=== PATIENT | male | born 1990 | race Caucasian/White ===

== ENCOUNTER 2021-05-24 11:30 | Emergency (ER) | payer OTHER, SELFPAY ==
--- NOTE | ~2021-05-24 | XR_ITS ---
EXAMINATION: XR chest 2V 05/24/2021 12:32 INDICATION: Cough and congestion PROCEDURE: 2 view chest COMPARISON: 06/19/2013 FINDINGS: The lungs are clear. The cardiomediastinal silhouette is within normal limits. There are no pleural effusions. There is no pneumothorax suspected. IMPRESSION: 1: NO ACUTE CARDIOPULMONARY DISEASE. Reviewed, dictated and finalized at location A.
[2021-05-24 11:42] VITALS: BP 188/121; PULSE 119; RESP 16; TEMP 37.2; O2SAT 98
--- NOTE | 2021-05-24 12:19 | ED.URI ---
HPI - URI/Sore Throat General Chief Complaint: Upper Respiratory Infection Stated Complaint: Light headed,Shortness of breath,cough Time Seen by Provider: 05/24/21 12:07 Source: patient and RN notes reviewed Mode of arrival: ambulatory Limitations: no limitations History of Present Illness HPI Narrative: Patient presents today complaining of intermittent cough, congestion, rhinorrhea. States cough began at the end of January. Reports he occasionally coughs up clear sputum and the cough is worse in the mornings. Reports he has been experiencing intermittent shortness of breath for the last month and a lung pain for the past week. Associated upper respiratory symptoms have also been present intermittently since January. Denies any history of asthma or COPD. He has not tried any medication for symptoms prior to arrival. He stopped vaping in October. Reports other members of his family also have similar symptoms that started around the same time. MD elicited complaint: cough, rhinorrhea and nasal congestion Related Data Allergies Allergy/AdvReac Type Severity Reaction Status Date / Time No Known Allergies Allergy Unverified 07/03/14 15:58 Review of Systems Review of Systems: CONSTITUTIONAL: Denies body aches, fever, chills, or sweats. EYES: Denies visual changes, redness, or discharge. ENT: Denies sore throat, or otalgia.+ Rhinorrhea, congestion CARDIOVASCULAR: Denies chest pain, palpitations, or edema. RESPIRATORY: + Cough, shortness of breath, lung pain . GASTROINTESTINAL: Denies abdominal pain, nausea, vomiting, or diarrhea. GENITOURINARY: Denies dysuria or hematuria. SKIN: Denies rash, itching, or wounds. MUSCULOSKELETAL: Denies back pain, joint pain, or myalgia. NEUROLOGIC: Denies headache, numbness, tingling, or weakness. PSYCH: Denies depression or anxiety. [facility] Past Medical History Medical History (Updated 05/24/21 @ 13:01 by Hayley Moore, [facility], ) GERD (gastroesophageal reflux disease) Comments At time of signature, I have reviewed and agree with nursing past medical, surgical, social and family history unless otherwise noted. Please see nursing chart for further information. There is no relevant family history pertinent to the presenting complaint Exam Narrative: GENERAL: Well-appearing, well-nourished, and in no acute distress. HEAD: Normocephalic, atraumatic. EYES: EOMI. No redness or drainage. Conjunctivae normal. ENT: Mucous membranes pink and moist. Nares clear. No rhinorrhea. TMs normal bilaterally. Throat normal. Uvula midline. NECK: Normal AROM. Supple. No lymphadenopathy. CHEST: No respiratory distress. Clear to auscultation. HEART: Regular rhythm. +Tachycardia. No murmur appreciated. Normal peripheral pulses. EXTREMITIES: Normal range of motion. No edema. SKIN: Warm, dry, no rash. Capillary refill normal. Normal skin turgor. NEURO: No focal deficits. Alert and oriented x3. Gait steady. PSYCH: Normal affect. No signs of depression or anxiety. Course Course Level of Care: Express Care Visit Vital Signs Vital signs: Vital Signs Temperature 99.0 F 05/24/21 11:42 Pulse Rate 119 H 05/24/21 11:42 Respiratory Rate 16 05/24/21 11:42 Blood Pressure 188/121 H 05/24/21 11:42 Pulse Oximetry 98 05/24/21 11:42 Temperature 99.0 F 05/24/21 11:42 Pulse Rate 119 H 05/24/21 11:42 Respiratory Rate 16 05/24/21 11:42 Blood Pressure 188/121 H 05/24/21 11:42 Pulse Oximetry 98 05/24/21 11:42 Reviewed. Pt has been instructed to follow up with his PCP regarding his elevated blood pressure today. States he has never been told he has high blood pressure. He does not currently have a PCP. MDM - URI/Sore Throat Differential Diagnosis Differential diagnosis: Likely upper respiratory infection, sinusitis, viral infection, bronchitis and other (Pneumonia) Imaging Data Radiologist's impression: ITS Impressions Chest X-Ray 05/24/21 12:39 IMPRESSION: 1: NO
== END 2021-05-24 12:57 | disposition home or self-care (01) ==
PROVIDERS: Emergency Provider Nurse Practitioner
DX: J40 Bronchitis, not specified as acute or chronic (principal); K21.9 Gastro-esophageal reflux disease without esophagitis
CPT/HCPCS: 71046; 99213; G0463

== ENCOUNTER 2022-07-03 13:17 | Emergency (ER) | payer BC, SELFPAY ==
--- NOTE | ~2022-07-03 | XR_ITS ---
EXAM: XR foot LT min 3V DATE: 07/03/2022 14:12 HISTORY: PAIN PLANTAR ASPECT OF DISTAL LT 5TH METATARSAL . COMPARISON: None available. FINDINGS: Normal mineralization. No fracture or dislocation. No lytic or blastic lesion. Joint space s are maintained. No erosion or periosteal change. Soft tissues within normal limits. Linear radiopaq ue foreign body along the medial and plantar soft tissues at the level of the fifth proximal phalange . IMPRESSION: Linear radiopaque foreign body in the plantar soft tissues at the level of the left fifth proximal phalange. Reviewed, dictated and finalized at location K. IMPRESSION: Linear radiopaque foreign body in the plantar soft tissues at the l evel of the left fifth proximal phalange.
--- NOTE | ~2022-07-03 | XR_ITS ---
EXAMINATION: XR chest 2V Exam Date/Time: 07/03/2022 14:00 CDT HISTORY: SOB ON AND OFF X 1 YR Comparison: 05/24/2021. RESULT: Lines, tubes, and devices: None. Lungs and pleura: Clear. Cardiomediastinal silhouette: Stable. Small hiatal hernia Other: No acute osseous or upper abdominal finding. IMPRESSION: No acute cardiopulmonary process. Reviewed, dictated and finalized at location K.
[2022-07-03 13:24] VITALS: BP 121/92; PULSE 104; RESP 16; TEMP 36.3; O2SAT 100
--- NOTE | 2022-07-03 13:39 | ED.LOWEXIN ---
HPI - Extremity Injury (Lower) General Chief Complaint: Extremity Injury, Lower Stated Complaint: SOB/Left Foot Pain Time Seen by Provider: 07/03/22 13:39 Source: patient Mode of arrival: ambulatory Limitations: no limitations History of Present Illness HPI Narrative: 32-year-old male presents with complaint of pain to left foot for 2 months. States he stepped on a nail at work and was never seen. He did not have insurance at the time. He states often has soreness to area where he stepped on nail after working long shifts. Six worse with bearing weight. Patient also reports short of breath when climbing ladders since January. States he had COVID in January. Denies chest pain, chest tightness, wheezing. Not short of breath at this time. Does not have a primary care physician. States he recently just got health insurance. Denies frequent coughing. Related Data Home Medications Medication Instructions Recorded Confirmed No Home Medications 07/03/22 07/03/22 Allergies Allergy/AdvReac Type Severity Reaction Status Date / Time No Known Allergies Allergy Verified 07/03/22 13:28 Review of Systems Review of Systems: CONSTITUTIONAL: Denies fever, chills, or sweats. EYES: Denies visual changes, redness, or discharge. ENT: Denies rhinorrhea, congestion, sore throat, or otalgia. CARDIOVASCULAR: Denies chest pain, palpitations, or edema. RESPIRATORY: Denies cough . Reports dyspnea with exertion. GASTROINTESTINAL: Denies abdominal pain, nausea, vomiting, or diarrhea. GENITOURINARY: Denies dysuria or hematuria. SKIN: Denies rash or itching. MUSCULOSKELETAL: Denies back pain, joint pain, or myalgia. reports left foot pain, plantar aspect. NEUROLOGIC: Denies headache, numbness, or weakness. PSYCHIATRIC: Denies anxiety or depression. All other systems reviewed are negative, except as documented in HPI. [facility]LY [facility] Past Medical History Medical History (Updated 07/03/22 @ 14:26 by Nyla Berger NP) GERD (gastroesophageal reflux disease) Comments At time of signature, agree with nursing past medical, surgical, social and family history. There is no relevant family history pertinent to the presenting complaint. Exam Narrative: GENERAL: This is a well-nourished, well-developed patient, in no apparent distress. HEAD: normocephalic, atraumatic. EYES: PERRL. Sclera clear/white. Vision is grossly intact. EARS: External ears normal NOSE: External nose normal NECK: Neck supple, non-tender without lymphadenopathy, masses or thyromegaly. CARDIOVASCULAR: Regular rate and rhythm without murmurs, gallops, or rubs. RESPIRATORY: Clear to auscultation. Breath sounds equal bilaterally. No wheezes, rales, or rhonchi. SKIN: warm, Dry, intact with no suspicious lesions or rash, good texture and turgor. No abnormality noted to plantar aspect of left foot. No tenderness on palpation. NEURO: awake, alert, and oriented to person, place and time. There were no obvious focal neurologic abnormalities. EXTREMITIES: No joint tenderness, effusion, or edema noted. Course Course Level of Care: Express Care Visit Vital Signs Vital signs: Vital Signs Temperature 36.3 C L 07/03/22 13:24 Pulse Rate 104 H 07/03/22 13:24 Respiratory Rate 16 07/03/22 13:24 Blood Pressure 121/92 H 07/03/22 13:24 Pulse Oximetry 100 07/03/22 13:24 Oxygen Delivery Room Air 07/03/22 13:24 Temperature 36.3 C L 07/03/22 13:24 Pulse Rate 104 H 07/03/22 13:24 Respiratory Rate 16 07/03/22 13:24 Blood Pressure 121/92 H 07/03/22 13:24 Pulse Oximetry 100 07/03/22 13:24 Oxygen Delivery Room Air 07/03/22 13:24 Reviewed MDM - Extremity Injury (Lower) MDM Narrative Medical decision making narrative: normal chest x-ray. Lung sounds clear to auscultation. No shortness of breath at this time. Patient reports shortness of breath only when climbing ladders. Will refer to primary care physician for further eval
[2022-07-03] MEDS: TETANUS,DIPHTHERIA,AC PERTUSSIS ADULT (0.5 ML) BOOSTRIX IM (14:17)
== END 2022-07-03 14:31 | disposition home or self-care (01) ==
PROVIDERS: Emergency Provider Nurse Practitioner Family
DX: R06.09 Other forms of dyspnea (principal); S90.852A Superficial foreign body, left foot, initial encounter; W45.0XXA Nail entering through skin, initial encounter; Z23 Encounter for immunization; K21.9 Gastro-esophageal reflux disease without esophagitis
CPT/HCPCS: 71046; 73630; 90471; 90715; 99214; G0463

== ENCOUNTER 2022-10-10 09:58 | Inpatient (IN) | payer BC, SELFPAY ==
[2022-10-10] VITALS (35 sets, daily range): BP systolic 153–195; BP diastolic 104–131; PULSE 96–130; RESP 12–26; TEMP 36.3–37; O2SAT 98–100; BMI 31.8
--- NOTE | ~2022-10-10 | XR_ITS ---
EXAMINATION: XR chest 1V portable DATE: 10/10/2022 11:55 INDICATION: Blood in stool. Left chest pain. TECHNIQUE: A single frontal view of the chest was obtained. COMPARISON: Chest 2 views 07/03/2022, CT abdomen and pelvis 06/19/2013 FINDINGS: There is no pneumonia, pleural effusion, or pneumothorax. The heart size is normal. IMPRESSION: 1. No acute cardiopulmonary disease. Reviewed, dictated and finalized at location A.
--- NOTE | 2022-10-10 10:23 | ECG_ITS ---
Measurements Intervals [place] Rate: 116 P: 65 CO: 135 QRS: 15 QRSD: 97 T: 13 QT: 320 QTc: 445 Interpretive Statements SINUS TACHYCARDIA INFERIOR MYOCARDIAL INFARCTION [40+ ms Q WAVE AND/OR ST/T ABNORMALITY IN II/aVF], OF INDETERMINATE AGE ABNORMAL ECG INTERPRETATION BASED ON A DEFAULT AGE OF 40 YEARS NO PREVIOUS ECG AVAILABLE FOR COMPARISON Electronically Signed On 10-10-2022 13:06:30 CDT by Jasbir Esquivel M.D.
--- NOTE | 2022-10-10 10:23 | ED.CHESTPAIN ---
HPI - Chest Pain General Chief Complaint: Chest Pain <KIP Shaver Last Filed: 10/10/22 19:25> Stated Complaint: hemorrhoid pop <KIP Shaver Last Filed: 10/10/22 19:25> Time Seen by Provider: 10/10/22 10:08 <KIP Shaver Last Filed: 10/10/22 19:25> Source: patient <KIP Shaver Last Filed: 10/10/22 19:25> Mode of arrival: ambulatory <KIP Shaver Last Filed: 10/10/22 19:25> Limitations: no limitations <KIP Shaver Last Filed: 10/10/22 19:25> History of Present Illness HPI narrative: Patient is a 32-year-old male who presents to the ED with multiple complaints. Patient is an alcoholic and typically drinks 8+ vodka drinks a day. His last drink was around 8 PM last night. He reports feeling very tremulous, shaky, jittery, with racing heart palpitations. He has had withdrawal symptoms before which feels similar. Denies history of withdrawal seizures. He also reports having bright red rectal bleeding with dark black stools over the last 2 days. He does note history of hemorrhoids, but denies feeling painful bulge. He has a remote history of ulcers, but denies any upper abdominal pain. He has had intermittent lower abdominal pain, denies any currently. This morning, he had 2 episodes of nausea with vomiting and still feels nauseous currently. He also reported having SOB and multiple episodes of midsternal and left-sided chest pain this morning. He states the pain occurs in brief sharp pokes throughout his left-sided chest, lasting for 5 minutes or so before resolving. Patient denies previous history of coronary disease. Denies history of blood clots. <KIP Shaver Last Filed: 10/10/22 19:25> Related Data Home Medications: Home Medications Medication Instructions Recorded Confirmed No Home Medications 07/03/22 10/10/22 <KIP Shaver Last Filed: 10/10/22 19:25> Allergies/Adverse Reactions: Allergies Allergy/AdvReac Type Severity Reaction Status Date / Time No Known Allergies Allergy Verified 10/10/22 10:16 <Emily Coulter PA-C - Last Filed: 10/10/22 19:25> Review of Systems Review of Systems: CONSTITUTIONAL: Denies fever, chills, or sweats. CARDIOVASCULAR: See HPI. RESPIRATORY: See HPI. GASTROINTESTINAL: See HPI. GENITOURINARY: Denies dysuria or hematuria. SKIN: Denies rash or itching. MUSCULOSKELETAL: Denies back pain, joint pain, or myalgia. NEUROLOGIC: See HPI. <Emily Coulter PA-C - Last Filed: 10/10/22 19:25> All systems reviewed & are unremarkable except as noted in HPI and below <Emily Coulter PA-C - Last Filed: 10/10/22 19:25> PMFSH Past Medical History Medical History: Medical History Alcoholism GERD (gastroesophageal reflux disease) Marijuana use, continuous Daily Obesity (BMI 30.0-34.9) Peptic ulcer disease <Emily Coulter PA-C - Last Filed: 10/10/22 19:25> Surgical History Surgical History: Surgical History History of adenoidectomy <Emily Coulter PA-C - Last Filed: 10/10/22 19:25> Social History Social History: Social History Smoking status: Former smoker Alcohol intake: current Drinks per week: 84 Alcohol use details: Alcoholism Substance use: current Substance use type: marijuana Last use: 10/10/22 Lack of Transportation: No Lack of Food: Never True Current Housing: I Have Housing Concerned About Future Housing: No Difficulty Paying Gas/Electric Bills: No Difficulty Paying for Meds: No Currently Unemployed: No Education: Trade/Vocational Certificate Difficulty w/ Childcare or Family Care: No Spiritual care concerns: No <Emily
--- NOTE | 2022-10-10 10:57 | PC.NURSE ---
Patient report given to DEYA Cristobal. All questions answered and care of patient transferred.
[2022-10-10] MEDS: LORazepam INJ (*CRX) 2 MG/ML VIAL 1 MG IV PUSH (11:02)
[2022-10-10] MEDS: ONDANSETRON INJ 4 MG/2 ML VIAL IV PUSH (11:02)
[2022-10-10 11:06] LABS: Ethanol < 10 mg/dL (<10)
[2022-10-10] MEDS: PHENobarbitaL sodium (*CRX) 130 MG/ML VIAL IV PUSH (11:08)
[2022-10-10 11:13] LABS: Albumin Level 4.8 g/dL (3.5-5.1); Alkaline Phosphatase 126 U/L (38-126); Anion Gap 17 mmol/L (8-16); Aspartate Amino Transferase 58 U/L (17-59); Bilirubin,Total 1.2 mg/dL (0.2-1.3); Blood Urea Nitrogen 8 mg/dL (9-20); Calcium 9.9 mg/dL (8.4-10.2); Carbon Dioxide 21 mmol/L (22-30); Chloride 93 mmol/L (98-107); Estimated CRCL calculation 134 ml/min; Estimated Glomerular Filt Rate > 60; Glucose 181 mg/dL (65-110); Lipase 84 U/L (23-300); Magnesium 1.3 mg/dL (1.6-2.3); Phosphorus 2.5 mg/dL (2.5-4.5); Potassium 3.8 mmol/L (3.4-5.0); Sodium 131 mmol/L (137-145)
[2022-10-10 11:16] LABS: Basophils Absolute Auto 0.1 K/mm3 (0.0-0.1); Basophils Percent Auto 0.4 % (0.2-1.2); Eosinophils Percent Auto 0.3 % (0-4.4); Hematocrit 47.8 % (42.0-52.0); Hemoglobin 17.3 g/dL (14.0-18.0); Immature Granulocyte Absolute 0.04 K/mm3 (0.00-0.031); Immature Granulocyte Percent A 0.3 % (0-0.5); Lymphocytes Absolute Auto 2.18 K/mm3 (0.9-3.2); Lymphocytes Percent Auto 18.8 % (18.3-44.2); Mean Corpuscular HGB Conc 36.2 g/dl (32-36); Mean Corpuscular Hemoglobin 32.6 pg (26-34); Mean Platelet Volume 9.8 fl (7.4-10.4); Monocytes Percent Auto 8.3 % (2.6-8.5); Neutrophils Absolute Auto 8.3 K/mm3 (1.3-6.7); Neutrophils Percent Auto 71.9 % (45.5-73.1); Platelet Count Result 248 k/mm3 (150-375); Red Blood Count 5.31 M/mm3 (4.6-6.20); Red Cell Distribution Width 12.9 % (11.5-14.5); White Blood Count 11.6 K/mm3 (4.5-10.0)
[2022-10-10 11:17] LABS: Alanine Aminotransferase 48 U/L (6-50)
[2022-10-10] MEDS: THIAMINE HCL INJ 100 MG, FOLIC ACID INJ 1 MG, MAGNESIUM SULFATE INJ 1 GM in LACTATED RI... IV CONT (11:18)
[2022-10-10 11:19] LABS: Troponin I < 0.012 ng/mL (0.000-0.034)
[2022-10-10] MEDS: SODIUM CHLORIDE 0.9% IV 1,000 ML 999 ML IV CONT ×3 (11:56→15:06)
[2022-10-10] MEDS: MAGNESIUM SULF 2 GM/WATER 50ML 2 GM/50 ML BAG IVPB (11:56)
[2022-10-10 12:05] LABS: Appearance Urine Clear (Clear); Bacteria Urine None Seen /hpf; Bilirubin Urine Negative (Negative); Blood Urine Negative (Negative); Color Urine Yellow (Yellow); Glucose Urine UA 1+ mg/dL (Negative); Ketones Urine Trace mg/dL (Negative); Leukocyte Esterase Ur Negative LEU/UL (Negative); Nitrate Urine Negative (Negative); Non Pathogenic Casts 0-2; Protein Urine 2+ mg/dL (Negative); RBC Urine 0-2 /hpf (0-2); Specific Grav Ur 1.018 (1.001-1.035); Squamous Epithelial Cell Urine None seen /hpf (Few); Urobilinogen Urine 0.2 mg/dL (<2.0); WBC Urine 0-5 /hpf
[2022-10-10 12:05] LABS: INR 0.9; Prothrombin Time 12.7 Seconds (11.1-14.7)
[2022-10-10 12:06] LABS: Partial Thromboplastin Time 24.6 SECONDS (22.3-36.8)
[2022-10-10 12:15] LABS: Amphetamine Screen Urine Negative (Negative); Barbiturate Screen Urine Negative (Negative); Benzodiazepines Screen Urine Negative (Negative); Cannabinoid Screen Urine Positive (Negative); Cocaine Screen Urine Negative (Negative); Methadone Screen Urine Negative (Negative); Opiate Screen Urine Negative (Negative); Phencyclidine Screen Urine Negative (Negative)
[2022-10-10 12:29] LABS: Add Urine Microscopic? YES
[2022-10-10] MEDS: PANTOPRAZOLE SODIUM IV 40 MG VIAL IV PUSH ×2 (13:24→20:01)
[2022-10-10] MEDS: LORazepam INJ (*CRX) 2 MG/ML VIAL IV PUSH (13:30)
[2022-10-10] MEDS: ACETAMINOPHEN 500 MG TABLET 1000 MG PO (13:30)
[2022-10-10 13:47] LABS: Lactic Acid Reflex 3.7 mmol/L (0.7-2.0)
[2022-10-10 14:00] LABS: Troponin I < 0.012 ng/mL (0.000-0.034)
[2022-10-10 16:32] LABS: Reflex Lactic Acid Yes or No Add Lactic
[2022-10-10 17:02] LABS: Lactic Acid 2.4 mmol/L (0.7-2.0)
--- NOTE | 2022-10-10 17:05 | PM.IMHP ---
H&P: HPI History of Present Illness Date/Time: 10/10/22 17:05 Chief Complaint: Bloody stools, chest pain Narrative: 32-year-old male with a past medical history of alcohol related ulcers, alcoholism and obesity who presented to the ER with rectal bleeding and chest pain. The patient reports that 2 days ago he noticed some bright red blood in his stools with a bowel movement. His bloody stools were accompanied by really dark brown stools almost black in color. He has been having reflux symptoms multiple times a day for quite some time. He thought his bleeding was due to hemorrhoids as he has had hemorrhoidal bleeding in the past. However each time he has had a bowel movement since then he has had and about the same amount of blood in his stools. Then today he also developed some nausea vomiting as well as some chest pain. His chest pain is atypical in nature and he describes it as sharp almost needle-like sensations on various areas over his left anterior and lateral chest. The pain comes and goes after couple of minutes only to moved to another spot. He denies feeling as if his heart is racing but he was noted to be markedly tachycardic in the ER. He has been having some nausea vomiting that began this morning although he denies any bloody emesis or coffee-ground emesis. He only vomited a couple of times in a consisted of the protein shake that he had been drinking. He has struggled with alcoholism for about 10 years. He reports that he was in recovery for about 3 months until July. In July he had a relapse in his since that time been drinking 8-12 shots a day. His last drink was around 20:00 on the . He reports that he recently has been trying to cut back on his alcohol use. He does also smoke marijuana multiple times a day. He is a former smoker as well. He denies any hematuria but his urine has been darker in appearance. 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 He denies any cough, congestion, orthopnea, paroxysmal nocturnal dyspnea or lower extremity swelling. ER to patient's CIWA score was 36. He received a dose of phenytoin. He had received 1 L of fluids in the ER I requested he received another 2 L. they did start a banana bag in the ER. Patient was noted to be hypomagnesemic in the ER and received 2 g of magnesium. He denies taking any blood thinners and does not have any home medications. He also reports that is ear canals have been itching recently. He does use Q-tips on a daily basis. At the time of my physical exam the patient had a perforated left eardrum. Review of Systems Review of Systems: 12 systems were reviewed with pertinent positives and negatives per HPI. Except as documented in the HPI, all other systems were reviewed and are negative. [facility] Past Medical History Medical History (Updated 10/10/22 @ 17:32 by Yvonne Eng DO) Alcoholism GERD (gastroesophageal reflux disease) Marijuana use, continuous Daily Obesity (BMI 30.0-34.9) Peptic ulcer disease Surgical History Surgical History (Updated 10/10/22 @ 17:21 by Yvonne Eng DO) History of adenoidectomy Social History Social History (Updated 10/10/22 @ 11:52 by Emily Coulter PA-C) Alcohol intake: current Alcohol use details: Alcoholism Meds Home Medications and Allergies Home Medications Medication Instructions Recorded Confirmed Type No Home Medications 07/03/22 07/03/22 History Allergies Allergy/AdvReac Type Severity Reaction Status Date / Time No Known Allergies Allergy Verified 10/10/22 10:16 Vital Signs Vital Signs - 24 hr 10/10/22 10:06 10/10/22 10:48 10/10/22 10:48 Temperature 97.4 F L Pulse Rate 128 H 104 H Respiratory Rate 17 Blood Pressure 187/131 H Pulse Oximetry 98 Oxygen Delivery Room Air Room Air 10/10/22 10:04 10/10/22 10:10 10/10/22 10:15 Temperature Pulse Rate 130 H 126 H Respiratory R
[2022-10-10 17:15] LABS: Troponin I < 0.012 ng/mL (0.000-0.034)
--- NOTE | 2022-10-10 17:23 | ADMGEN ---
This patient, Almas Sheppard, was admitted to IMU Room 207-01. Patient/family oriented to hospital policies and general routines including ID bracelet, bed and alarms, visiting hours, pain management, procedures, bathroom and other care routines, personal items, smoking policy, room service/diet, and visiting hours. Information on how to activate the Rapid Response Team has been discussed. Patient/Family are encouraged to report perceived risks to care and to ask questions if they do not understand what they are told or what they should do.
[2022-10-10 18:12] LABS: Hematocrit 49.3 % (42.0-52.0); Hemoglobin 17.2 g/dL (14.0-18.0)
[2022-10-10] MEDS: chlordiazePOXIDE (*CRX) 25 MG CAPSULE 50 MG PO (18:14)
[2022-10-10] MEDS: SODIUM CHLORIDE 0.9% IV 1,000 ML 150 ML IV CONT (20:01)
[2022-10-10 21:14] LABS: Hemoglobin A1C 7.2 % (<5.7)
[2022-10-11] VITALS (26 sets, daily range): BP systolic 120–184; BP diastolic 79–129; PULSE 74–123; RESP 14–20; TEMP 36.3–36.8; O2SAT 97–100
[2022-10-11] MEDS: chlordiazePOXIDE (*CRX) 25 MG CAPSULE 50 MG PO ×5 (01:13→23:21)
[2022-10-11 01:22] LABS: Hematocrit 40.6 % (42.0-52.0); Hemoglobin 14.1 g/dL (14.0-18.0)
[2022-10-11 01:24] LABS: Glucose Point of Care 158 mg/dl (65-105)
[2022-10-11] MEDS: METOPROLOL TARTRATE INJ 5 MG/5 ML VIAL IV PUSH (01:24)
[2022-10-11] MEDS: SODIUM CHLORIDE 0.9% IV 1,000 ML 150 ML IV CONT ×3 (03:04→19:44)
[2022-10-11] MEDS: LORazepam INJ (*CRX) 2 MG/ML VIAL IV PUSH ×3 (03:04→21:31)
[2022-10-11] MEDS: hydrALAZINE HCL 20 MG/ML VIAL 10 MG IV PUSH (04:49)
[2022-10-11] MEDS: HYDROmorphone HCL INJ (*CRX) 1 MG/ML SYR 0.5 MG IV PUSH (04:50)
[2022-10-11 06:44] LABS: Glucose Point of Care 154 mg/dl (65-105)
--- NOTE | 2022-10-11 08:58 | PM.IMPN ---
Progress Note: A&P Assessment and Plan (1) Alcohol withdrawal: Qualifiers: Complication of substance-induced condition: with unspecified complication Qualified Code(s): F10.939 - Alcohol use, unspecified with withdrawal, unspecified Code(s): F10.939 - Alcohol use, unspecified with withdrawal, unspecified Status: Acute Assessment and Plan: Supportive care, chlordiazepoxide scheduled, monitor CIWA Thiamine and folate administration, seizure precautions Mild transaminitis, monitor (2) Hypomagnesemia: Code(s): E83.42 - Hypomagnesemia Status: Acute (3) Rectal bleeding: Code(s): K62.5 - Hemorrhage of anus and rectum Status: Acute Assessment and Plan: Consult GI, PPI b.i.d. (4) Atypical chest pain: Code(s): R07.89 - Other chest pain Status: Acute Assessment and Plan: Likely secondary to gastritis, monitor (5) Peptic ulcer disease: Code(s): K27.9 - Peptic ulcer, site unspecified, unspecified as acute or chronic, without hemorrhage or perforation Status: Acute Assessment and Plan: See above (6) Hyponatremia: Code(s): E87.1 - Hypo-osmolality and hyponatremia Status: Acute Assessment and Plan: Monitor with gentle IV fluid resuscitation, likely somewhat chronic due to alcoholism (7) Hyperglycemia: Code(s): R73.9 - Hyperglycemia, unspecified Status: Acute Assessment and Plan: Check A1c, Accu-Cheks, sliding scale insulin Blood glucose reviewed 10/11 (8) Hypertension: Qualifiers: Hypertension type: unspecified Qualified Code(s): I10 - Essential (primary) hypertension Code(s): I10 - Essential (primary) hypertension Status: Acute Assessment and Plan: Blood pressure reviewed 10/11 (9) Obesity (BMI 30.0-34.9): Code(s): E66.9 - Obesity, unspecified Status: Acute (10) Perforated left tympanic membrane on examination: Code(s): H72.92 - Unspecified perforation of tympanic membrane, left ear Status: Acute Assessment and Plan: Supportive care, avoid Q-tips, monitor outpatient Plan Suspect sleep apnea, recommend sleep study at discharge The patient has alcoholism without acute alcohol withdrawal. Patient's CIWA score was up to 36 in the ER but responded well to phenobarbital. The patient has been admitted to the IMU. Will continue check CIWA scores q.4 hours. Will give Ativan in staggered doses based on CIWA scores. Will place patient on scheduled Librium 50 mg q.6 hours. Will continue p.r.n. medications for nausea and vomiting. Patient has been placed on seizure precautions although his does not have a history of alcohol withdrawal seizures. Will continue patient on thiamine supplementation daily. Will continue IV fluid hydration normal saline at 150 mL an hour as the patient does have evidence of dehydration and alcoholic ketosis. Patient does have significant sinus tachycardia. Again likely due to dehydration. However patient is also quite anxious and this may be playing a component in his tachycardia. Will continue to monitor on telemetry. His EKG was reviewed and he has normal QT interval. Patient does have a Q-waves and AVF. However his chest pain is atypical in nature. Will continue to trend troponins. Patient is being observed in the IMU. Patient does have rectal bleeding and history of peptic ulcer disease. He is having frequent GERD symptoms. Will place patient on Protonix 40 mg IV q.12 hours and will consult GI. Will monitor serial H&H. Patient does have mild hyponatremia again likely secondary to alcohol use and or hypovolemia. Will repeat BMP in a.m.. Patient has transaminitis likely secondary to alcohol use however cannot rule fatty liver. If liver enzymes do not improve will consider right upper quadrant ultrasound. Patient does have mild hyperglycemia. Will check A1c with next
[2022-10-11] MEDS: LACTATED RINGERS 1,000 ML 150 ML IV CONT (09:30)
--- NOTE | 2022-10-11 09:42 | WPDANESEPPF ---
Anes - Initial Pre Proc Eval Procedure: Operation Date: 10/11/22 12:30 Proposed Procedures p Esophagogastroduodenoscopy - Shine Chavarria MD Date/Time: 10/11/22 09:42 Surgeon: Yvonne Eng DO Pre Op Diagnosis: gib,etoh wd,chest pain Patient Data Age: 32 Gender: M Height: 1.78 m Weight: 100.5 kg Last Vital Signs Temp 98.2 F 10/11/22 07:32 Pulse 88 10/11/22 08:00 Resp 14 10/11/22 07:32 BP 174/121 H 10/11/22 07:32 Pulse Ox 100 10/11/22 07:32 O2 Del Method Room Air 10/11/22 04:00 Allergies Allergy/AdvReac Type Severity Reaction Status Date / Time No Known Allergies Allergy Verified 10/11/22 08:45 Home Medications Medication Instructions Recorded Confirmed Type No Home Medications 07/03/22 10/10/22 History Laboratory Tests 10/10/22 10/10/22 10/10/22 10:42 10:42 10:42 WBC 11.6 H K/mm3 (4.5-10.0) RBC 5.31 M/mm3 (4.6-6.20) Hgb 17.3 g/dL 17.2 g/dL (14.0-18.0) (14.0-18.0) Hct 47.8 % 49.3 % (42.0-52.0) (42.0-52.0) MCV 90.0 fl (80-100) MCH 32.6 pg (26-34) MCHC 36.2 H g/dl (32-36) RDW 12.9 % (11.5-14.5) Plt Count 248 k/mm3 (150-375) MPV 9.8 fl (7.4-10.4) Immature Gran % (Auto) 0.3 % (0-0.5) Neut % (Auto) 71.9 % (45.5-73.1) Lymph % (Auto) 18.8 % (18.3-44.2) [place] % (Auto) 8.3 % (2.6-8.5) Eos % (Auto) 0.3 % (0-4.4) Baso % (Auto) 0.4 % (0.2-1.2) Lymph # (Auto) 2.18 K/mm3 (0.9-3.2) [place] # (Auto) 1.0 H K/mm3 (0.1-0.6) Eos # (Auto) 0.0 K/mm3 (0-0.3) Baso # (Auto) 0.1 K/mm3 (0.0-0.1) Abs Immat Gran (auto) 0.04 H K/mm3 (0.00-0.031) Absolute Neuts (auto) 8.3 H K/mm3 (1.3-6.7) Absolute Nucleated RBC 0.0 K/mm3 (0.0-0.012) Nucleated RBC % 0.0 % (0.0-0.2) PT 12.7 Seconds (11.1-14.7) INR 0.9 APTT 24.6 SECONDS (22.3-36.8) Sodium 131 L mmol/L (137-145) Potassium 3.8 mmol/L (3.4-5.0) Chloride 93 L mmol/L (98-107) Carbon Dioxide 21 L mmol/L (22-30) Anion Gap 17 H mmol/L (8-16) BUN 8 L mg/dL (9-20) Creatinine 0.80 mg/dL (0.7-1.3) Estim Creat Clear Calc 134 ml/min Estimated GFR > 60 (59 - ) Glucose 181 H mg/dL (65-110) POC Capillary Glucose Hemoglobin A1c 7.2 H % (<5.7) Lactic Acid Calcium 9.9 mg/dL (8.4-10.2) Phosphorus 2.5 mg/dL (2.5-4.5) Magnesium Total Bilirubin AST ALT Alkaline Phosphatase Troponin I Total Protein Albumin Lipase Urine Color Urine Appearance Urine pH Ur Specific [place] Urine Protein Urine Glucose (UA) Urine Ketones Ur Blood (Man) Urine Nitrate Urine Bilirubin Urine Urobilinogen Leukocyte Esterase Rfl Urine RBC Urine WBC Ur Squamous Epith Cells Urine Bacteria Urine Casts Urine Opiates Screen Urine Methadone Screen Ur Barbiturates Screen Ur Phencyclidine Scrn Ur Amphetamine Screen U Benzodiazepines Scrn Urine Cocaine Screen U Cannabinoids Screen Ethyl Alcohol Blood Type Antibody Screen 10/10/22 10/10/22 10/10/22 10:42 10:42 11:47 WBC RBC Hgb Hct MCV MCH MCHC RDW Plt Count MPV Immature G
--- NOTE | 2022-10-11 09:46 | WPDGICN ---
Assessment and Plan Assessment and plan (1) GIB (gastrointestinal bleeding): Qualifiers: GI bleed type/associated pathology: unspecified gastrointestinal hemorrhage type Qualified Code(s): K92.2 - Gastrointestinal hemorrhage, unspecified Code(s): K92.2 - Gastrointestinal hemorrhage, unspecified Status: Acute Assessment and Plan: will proceed with urgent egd, he has known history of ulcers iv protonix for now hgb down 14 from 17 (he was dehydrated and hemoconcentrated)- continue to monitor (2) Alcoholic ketosis: Code(s): E88.89 - Other specified metabolic disorders Status: Acute Assessment and Plan: fluids, thiamine, monitor for withdrawal feeling better (3) Hyponatremia: Code(s): E87.1 - Hypo-osmolality and hyponatremia Status: Acute Assessment and Plan: monitor (4) Rectal bleeding: Code(s): K62.5 - Hemorrhage of anus and rectum Status: Acute Assessment and Plan: egd, if negative then consider colonoscopy probably as outpatient (5) Hypomagnesemia: Code(s): E83.42 - Hypomagnesemia Status: Acute Assessment and Plan: treated (6) Dehydration: Code(s): E86.0 - Dehydration Status: Acute Assessment and Plan: better after iv fluids GI Consult Note Consult date/time: 10/11/22 09:46 Reason for consult: GIB HPI: Almas Sheppard is a 32 year old male with history of stomach ulcer about 10 years ago (had EGD and took omeprazole, now using probably 1-2 times a week as needed). He is alcoholic about 8-10 drinks of vodka daily. He came here after noted dark stools with bright blood, was feeling lightheaded, chest discomfort and nauseous. hgb on arrival 17 with lactic 3, also tachycardic and dehydrated, hgb down to 14 and feeling better after fluids and medical treatment. Never had colonoscopy. Liver enzymes normal, na 131. Review of Systems Constitutional: Constitutional: Reports lethargy Eyes: Eyes: Denies blurry vision ENT: Reports Normal hearing present Cardiovascular: Cardiovascular: Reports chest pain Respiratory: Respiratory: Denies cough Gastrointestinal: Gastrointestinal: Reports melena, Reports hematochezia and Reports nausea Genitourinary: Genitourinary: Denies hematuria Musculoskeletal: Musculoskeletal: Denies arthralgias Integumentary/Breasts: Skin/Breast: Denies rash Neurologic: Denies confusion Psychiatric: Psychiatric: Denies behavioral changes [facility]LY [facility] Past Medical History Medical History (Updated 10/11/22 @ 11:40 by Shine Chavarria MD) Alcoholism Dehydration GERD (gastroesophageal reflux disease) Marijuana use, continuous Daily Obesity (BMI 30.0-34.9) Peptic ulcer disease Surgical History Surgical History History of adenoidectomy Family History Family History (Updated 10/10/22 @ 20:14 by Cheri Villatoro RN) Father Diabetes mellitus Mother Diabetes mellitus Heart attack Grandparent Diabetes mellitus Heart disease Malignant neoplasm of prostate Social History Social History Smoking status: Former smoker Alcohol intake: current Drinks per week: 84 Alcohol use details: Alcoholism Substance use: current Substance use type: marijuana Last use: 10/10/22 Lack of Transportation: No Lack of Food: Never True Current Housing: I Have Housing Concerned About Future Housing: No Difficulty Paying Gas/Electric Bills: No Difficulty Paying for Meds: No Currently Unemployed: No Education: Trade/Vocational Certificate Difficulty w/ Childcare or Family Care: No Spiritual care concerns: No Meds Home Medications and Allergies Home Medications Medication Instructions Recorded Confirmed Type No Home Medications 07/03/22 10/10/22 History Allergies Allergy/AdvReac Type Se
[2022-10-11 10:48] LABS: Hematocrit 40.8 % (42.0-52.0); Hemoglobin 14.1 g/dL (14.0-18.0); Mean Corpuscular HGB Conc 34.6 g/dl (32-36); Mean Corpuscular Hemoglobin 32.3 pg (26-34); Mean Corpuscular Volume 93.4 fl (80-100); Mean Platelet Volume 9.5 fl (7.4-10.4); Platelet Count Result 160 k/mm3 (150-375); Red Blood Count 4.37 M/mm3 (4.6-6.20); Red Cell Distribution Width 13.4 % (11.5-14.5); White Blood Count 6.4 K/mm3 (4.5-10.0)
[2022-10-11 10:55] LABS: Alanine Aminotransferase 30 U/L (6-50); Albumin Level 3.9 g/dL (3.5-5.1); Alkaline Phosphatase 86 U/L (38-126); Anion Gap 4 mmol/L (8-16); Aspartate Amino Transferase 86 U/L (17-59); Bilirubin,Total 1.1 mg/dL (0.2-1.3); Blood Urea Nitrogen 6 mg/dL (9-20); Calcium 8.4 mg/dL (8.4-10.2); Carbon Dioxide 26 mmol/L (22-30); Chloride 102 mmol/L (98-107); Estimated CRCL calculation 135 ml/min; Estimated Glomerular Filt Rate > 60; Glucose 153 mg/dL (65-110); Phosphorus 3.2 mg/dL (2.5-4.5); Potassium 3.9 mmol/L (3.4-5.0); Sodium 132 mmol/L (137-145)
[2022-10-11] MEDS: THIAMINE HCL 200 MG/2 ML VIAL 100 MG IV PUSH (10:55)
[2022-10-11] MEDS: LORazepam INJ (*CRX) 2 MG/ML VIAL 4 MG IV PUSH (10:59)
[2022-10-11 11:23] LABS: Glucose Point of Care 167 mg/dl (65-105)
--- NOTE | 2022-10-11 14:13 | PC.NURSE ---
All personal belongings sent home with patients mother. Patient requested to keep his hygiene bag with him.
[2022-10-11 17:40] LABS: Glucose Point of Care 212 mg/dl (65-105)
[2022-10-11 18:26] LABS: Hematocrit 37.9 % (42.0-52.0); Hemoglobin 13.2 g/dL (14.0-18.0)
[2022-10-11 23:57] LABS: Glucose Point of Care 164 mg/dl (65-105)
[2022-10-12] VITALS (18 sets, daily range): BP systolic 138–164; BP diastolic 91–122; PULSE 60–105; RESP 16–20; TEMP 36.3–36.9; O2SAT 99–100
[2022-10-12] MEDS: SODIUM CHLORIDE 0.9% IV 1,000 ML 150 ML IV CONT ×4 (02:26→22:50)
[2022-10-12 04:38] LABS: Basophils Percent Auto 0.6 % (0.2-1.2); Eosinophils Absolute Auto 0.1 K/mm3 (0-0.3); Eosinophils Percent Auto 2.4 % (0-4.4); Hematocrit 40.7 % (42.0-52.0); Hemoglobin 13.5 g/dL (14.0-18.0); Immature Granulocyte Absolute 0.01 K/mm3 (0.00-0.031); Immature Granulocyte Percent A 0.2 % (0-0.5); Immature Platelet Fraction Pct 3.2 % (0.9-11.2); Lymphocytes Absolute Auto 1.91 K/mm3 (0.9-3.2); Lymphocytes Percent Auto 38.2 % (18.3-44.2); Mean Corpuscular HGB Conc 33.2 g/dl (32-36); Mean Corpuscular Hemoglobin 31.8 pg (26-34); Mean Platelet Volume 9.4 fl (7.4-10.4); Monocytes Absolute Auto 0.4 K/mm3 (0.1-0.6); Neutrophils Absolute Auto 2.5 K/mm3 (1.3-6.7); Neutrophils Percent Auto 50.6 % (45.5-73.1); Platelet Count Result 128 k/mm3 (150-375); Red Blood Count 4.24 M/mm3 (4.6-6.20); Red Cell Distribution Width 13.2 % (11.5-14.5)
[2022-10-12 04:49] LABS: Alanine Aminotransferase 30 U/L (6-50); Albumin Level 3.7 g/dL (3.5-5.1); Alkaline Phosphatase 79 U/L (38-126); Anion Gap 4 mmol/L (8-16); Aspartate Amino Transferase 70 U/L (17-59); Bilirubin,Total 0.6 mg/dL (0.2-1.3); Blood Urea Nitrogen 7 mg/dL (9-20); Calcium 8.4 mg/dL (8.4-10.2); Carbon Dioxide 26 mmol/L (22-30); Chloride 105 mmol/L (98-107); Estimated CRCL calculation 121 ml/min; Estimated Glomerular Filt Rate > 60; Glucose 158 mg/dL (65-110); Potassium 3.8 mmol/L (3.4-5.0); Sodium 135 mmol/L (137-145)
[2022-10-12] MEDS: chlordiazePOXIDE (*CRX) 25 MG CAPSULE 50 MG PO (05:30)
--- NOTE | 2022-10-12 08:49 | PM.IMPN ---
Progress Note: A&P Assessment and Plan (1) Alcohol withdrawal: Qualifiers: Complication of substance-induced condition: with unspecified complication Qualified Code(s): F10.939 - Alcohol use, unspecified with withdrawal, unspecified Code(s): F10.939 - Alcohol use, unspecified with withdrawal, unspecified Status: Acute Assessment and Plan: Supportive care, chlordiazepoxide scheduled, monitor CIWA Thiamine and folate administration, seizure precautions Mild transaminitis, monitor 10/12: CIWA 8, decrease libirum from 50mg to 25 mg q6h, monitor (2) Hypomagnesemia: Code(s): E83.42 - Hypomagnesemia Status: Acute Assessment and Plan: resolved (3) Rectal bleeding: Code(s): K62.5 - Hemorrhage of anus and rectum Status: Acute Assessment and Plan: Consult GI, PPI b.i.d. 10/12: EGD showed mild gastritis, PPI daily recommended (4) Atypical chest pain: Code(s): R07.89 - Other chest pain Status: Acute Assessment and Plan: resolved (5) Peptic ulcer disease: Code(s): K27.9 - Peptic ulcer, site unspecified, unspecified as acute or chronic, without hemorrhage or perforation Status: Acute Assessment and Plan: See above (6) Hyponatremia: Code(s): E87.1 - Hypo-osmolality and hyponatremia Status: Acute Assessment and Plan: Monitor with gentle IV fluid resuscitation, likely somewhat chronic due to alcoholism 10/12: resolved (7) Hyperglycemia: Code(s): R73.9 - Hyperglycemia, unspecified Status: Acute Assessment and Plan: Check A1c, Accu-Cheks, sliding scale insulin Blood glucose reviewed 10/12 (8) Hypertension: Qualifiers: Hypertension type: unspecified Qualified Code(s): I10 - Essential (primary) hypertension Code(s): I10 - Essential (primary) hypertension Status: Acute Assessment and Plan: Blood pressure reviewed 10/12 (9) Obesity (BMI 30.0-34.9): Code(s): E66.9 - Obesity, unspecified Status: Acute (10) Perforated left tympanic membrane on examination: Code(s): H72.92 - Unspecified perforation of tympanic membrane, left ear Status: Acute Assessment and Plan: Supportive care, avoid Q-tips, monitor outpatient Plan Suspect sleep apnea, recommend sleep study at discharge DVT prophylaxis with SCDs GI prophylaxis with PPI Code status full code Subjective Date/time seen: 10/12/22 08:49 Interval history: 32-year-old male with history of alcoholism and peptic ulcer disease presenting with rectal bleeding as well as chest pain and being treated for GI bleed as well as alcohol withdrawal. No overnight events noted. No chest pain or shortness of breath. No nausea, vomiting or diarrhea. No fevers or chills. Less tremulous than yesterday, still somewhat uncomfortable. Review of Systems Review of Systems: 12 point review of systems was assessed and was negative except as noted in the HPI Exam Narrative: General: No acute distress, alert and oriented per baseline HEENT: Atraumatic, normocephalic, mucous membranes moist CV: Regular rate and rhythm, S1, S2 Lungs: Clear to auscultation bilaterally, no rales or crackles noted, no wheezes, good air entry Abdomen: Soft, nontender, nondistended Extremities: Normal to inspection Skin: No rashes noted, no lesions or wounds seen Psych: More calm today, euthymic mood Neuro: tremulous, non focal exam Objective Data Vital Signs Vital Signs: Vital Signs - 24 hr 10/11/22 09:45 10/11/22 10:03 10/11/22 10:13 Temperature Pulse Rate 84 84 Pulse Rate [Monitor] Respiratory Rate 18 19 Blood Pressure 158/101 H 120/79 122/82 Pulse Oximetry 97 97 Oxygen Delivery Room Air Room Air 10/11/22 10:23 10/11/22 11:49 10/11/22 10:00 Temperature 97.7 F Pulse Rate 86 100 92 Pulse Rate [Monitor] Respiratory
[2022-10-12] MEDS: PANTOPRAZOLE 40 MG TABLET PO (09:38)
[2022-10-12] MEDS: THIAMINE HCL 200 MG/2 ML VIAL 100 MG IV PUSH (09:38)
[2022-10-12 11:27] LABS: Glucose Point of Care 165 mg/dl (65-105)
[2022-10-12] MEDS: chlordiazePOXIDE (*CRX) 25 MG CAPSULE PO ×3 (11:37→23:05)
[2022-10-12] MEDS: METOPROLOL TARTRATE INJ 5 MG/5 ML VIAL IV PUSH (11:37)
--- NOTE | 2022-10-12 15:00 | WPDGIPROGNO ---
Progress Note: A&P Assessment and Plan (1) GIB (gastrointestinal bleeding): Qualifiers: GI bleed type/associated pathology: unspecified gastrointestinal hemorrhage type Qualified Code(s): K92.2 - Gastrointestinal hemorrhage, unspecified Code(s): K92.2 - Gastrointestinal hemorrhage, unspecified Status: Acute Assessment and Plan: initial h/h drop after hydration but stable since no gib will arrange colonoscopy as outpatient tolerating diet (2) Alcoholic ketosis: Code(s): E88.89 - Other specified metabolic disorders Status: Acute Assessment and Plan: resolved (3) Alcohol withdrawal: Qualifiers: Complication of substance-induced condition: with unspecified complication Qualified Code(s): F10.939 - Alcohol use, unspecified with withdrawal, unspecified Code(s): F10.939 - Alcohol use, unspecified with withdrawal, unspecified Status: Acute Assessment and Plan: less tremors and stable on thiamine and ciwa protocol (4) Gastritis: Code(s): K29.70 - Gastritis, unspecified, without bleeding Status: Acute Assessment and Plan: mild gastritis ppi daily (5) Dehydration: Code(s): E86.0 - Dehydration Status: Acute Assessment and Plan: resolved (6) Hyponatremia: Code(s): E87.1 - Hypo-osmolality and hyponatremia Status: Acute Assessment and Plan: improved Subjective Date/time seen: 10/12/22 15:00 Interval history: egd yesterday with hiatal hernia and mild gastritis, no signs of bleeding he has been resting and feels comfortable, denies gib mother at bedside Review of Systems Review of Systems: All systems reviewed & are unremarkable except as noted in HPI and below Exam Const: General: comfortable and no acute distress HENMT: Face/Nose/Sinus: Normal nares present Eyes: General: appearance normal, both eyes and all related structures Neck: Neck: no JVD Resp: Auscultation: clear to auscultation bilaterally Cardio: Rate: regular rate Rhythm: regular rhythm GI: Inspection: non-distended GI Palp: Yes Soft to palpation and No Tenderness to palpation present (GI) Auscultation: normal bowel sounds Skin: General skin exam: normal color Neuro: Speech: normal speech Motor exam (neuro): 5/5 motor strength present throughout Extrem: General: normal to inspection Psych: Mental Status: mental status grossly normal Objective Data Vital Signs Vital Signs: Vital Signs - 24 hr 10/11/22 16:00 10/11/22 16:00 10/11/22 16:00 Temperature Pulse Rate 116 H Pulse Rate [Monitor] 115 H Respiratory Rate Blood Pressure 158/104 H Pulse Oximetry 100 Oxygen Delivery Room Air 10/11/22 16:00 10/11/22 18:00 10/11/22 19:52 Temperature 98.1 F 97.4 F L Pulse Rate 116 H 111 H 120 H Pulse Rate [Monitor] Respiratory Rate 20 16 Blood Pressure 158/104 H 157/98 H Pulse Oximetry 100 100 Oxygen Delivery 10/11/22 19:56 10/11/22 19:56 10/11/22 20:00 Temperature Pulse Rate 120 H 117 H Pulse Rate [Monitor] 120 H Respiratory Rate 16 Blood Pressure 157/98 H Pulse Oximetry 100 Oxygen Delivery Room Air 10/11/22 21:22 10/11/22 21:25 10/11/22 23:57 Temperature 97.5 F L Pulse Rate 106 H 97 Pulse Rate [Monitor] 123 H Respiratory Rate 18 Blood Pressure 157/98 H 147/93 H Pulse Oximetry 100 Oxygen Delivery 10/11/22 23:24 10/11/22 23:24 10/12/22 00:00 Temperature Pulse Rate 97 100 Pulse Rate [Monitor] 97 Respiratory Rate 18 Blood Pressure 147/93 H Pulse Oximetry 100 Oxygen Delivery Room Air 10/12/22 01:13 10/12/22 04:00 10/12/22 04:00 Temperature 97.3 F L Pulse Rate 98 87 60 Pulse Rate [Monitor] Respiratory Rate 16 Blood Pressure 146/107 H Pulse Oximetry 100 Oxygen Delivery 10/12/22 04:00 10/12/22 04:00 10/12/22 05:04 Temperature Pulse Rate 94 86 Pulse Rate [Monitor] 94 Re
--- NOTE | 2022-10-12 16:26 | P.PNAN_ITS ---
Anes - Prog Note Post-Op Date/Time: 10/12/22 16:26 Cardiovascular status: normal Respiratory status: normal Airway patency: baseline Mental status: baseline Post-Op hydration status: normal Vital Signs: Last Vital Signs Temp 97.8 F 10/12/22 15:52 Pulse 91 10/12/22 15:52 Resp 16 10/12/22 15:52 BP 138/91 H 10/12/22 15:52 Pulse Ox 99 10/12/22 15:52 O2 Del Method Room Air 10/12/22 12:00 Pain Score (VAS): 0 I/O: Intake & Output 10/12/22 10/12/22 10/12/22 07:59 15:59 23:59 Intake Total 1500 1480 Output Total 1200 Balance 300 1480 Laboratory Tests 10/12/22 04:30 10/12/22 04:30 10/11/22 10/11/22 10/11/22 17:34 18:18 23:55 WBC RBC Hgb 13.2 L Hct 37.9 L MCV MCH MCHC RDW Plt Count MPV Immature Gran % (Auto) Neut % (Auto) Lymph % (Auto) [place] % (Auto) Eos % (Auto) Baso % (Auto) Lymph # (Auto) [place] # (Auto) Eos # (Auto) Baso # (Auto) Abs Immat Gran (auto) Absolute Neuts (auto) Absolute Nucleated RBC Nucleated RBC % % Immature Plt Fraction Sodium Potassium Chloride Carbon Dioxide Anion Gap BUN Creatinine Estim Creat Clear Calc Estimated GFR Glucose POC Capillary Glucose 212 H 164 H Calcium Total Bilirubin AST ALT Alkaline Phosphatase Total Protein Albumin 10/12/22 10/12/22 04:30 11:21 WBC 5.0 RBC 4.24 L Hgb 13.5 L Hct 40.7 L MCV 96.0 MCH 31.8 MCHC 33.2 RDW 13.2 Plt Count 128 L MPV 9.4 Immature Gran % (Auto) 0.2 Neut % (Auto) 50.6 Lymph % (Auto) 38.2 [place] % (Auto) 8.0 Eos % (Auto) 2.4 Baso % (Auto) 0.6 Lymph # (Auto) 1.91 [place] # (Auto) 0.4 Eos # (Auto) 0.1 Baso # (Auto) 0.0 Abs Immat Gran (auto) 0.01 Absolute Neuts (auto) 2.5 Absolute Nucleated RBC 0.0 Nucleated RBC % 0.0 % Immature Plt Fraction 3.2 Sodium 135 L Potassium 3.8 Chloride 105 Carbon Dioxide 26 Anion Gap 4 L BUN 7 L Creatinine 0.90 Estim Creat Clear Calc 121 Estimated GFR > 60 Glucose 158 H POC Capillary Glucose 165 H Calcium 8.4 Total Bilirubin 0.6 AST 70 H ALT 30 Alkaline Phosphatase 79 Total Protein 7.0 Albumin 3.7 Post-procedural complaints: none Patient Feedback: Patient satisfied with anesthetic care.
[2022-10-12 17:39] LABS: Glucose Point of Care 218 mg/dl (65-105)
[2022-10-12 23:14] LABS: Glucose Point of Care 145 mg/dl (65-105)
[2022-10-13] VITALS (9 sets, daily range): BP systolic 145–156; BP diastolic 96–108; PULSE 72–124; RESP 16–20; TEMP 35.8–36.9; O2SAT 100
[2022-10-13 04:49] LABS: Basophils Percent Auto 0.5 % (0.2-1.2); Eosinophils Absolute Auto 0.2 K/mm3 (0-0.3); Eosinophils Percent Auto 3.5 % (0-4.4); Hematocrit 39.8 % (42.0-52.0); Hemoglobin 13.5 g/dL (14.0-18.0); Immature Granulocyte Absolute 0.02 K/mm3 (0.00-0.031); Immature Granulocyte Percent A 0.3 % (0-0.5); Immature Platelet Fraction Pct 4.2 % (0.9-11.2); Lymphocytes Absolute Auto 2.04 K/mm3 (0.9-3.2); Lymphocytes Percent Auto 32.9 % (18.3-44.2); Mean Corpuscular HGB Conc 33.9 g/dl (32-36); Mean Corpuscular Hemoglobin 32.7 pg (26-34); Mean Corpuscular Volume 96.4 fl (80-100); Mean Platelet Volume 10.1 fl (7.4-10.4); Monocytes Absolute Auto 0.4 K/mm3 (0.1-0.6); Monocytes Percent Auto 6.9 % (2.6-8.5); Neutrophils Absolute Auto 3.5 K/mm3 (1.3-6.7); Neutrophils Percent Auto 55.9 % (45.5-73.1); Platelet Count Result 148 k/mm3 (150-375); Red Blood Count 4.13 M/mm3 (4.6-6.20); White Blood Count 6.2 K/mm3 (4.5-10.0)
[2022-10-13 04:57] LABS: Alanine Aminotransferase 39 U/L (6-50); Albumin Level 3.8 g/dL (3.5-5.1); Alkaline Phosphatase 78 U/L (38-126); Anion Gap 4 mmol/L (8-16); Aspartate Amino Transferase 79 U/L (17-59); Bilirubin,Total 0.6 mg/dL (0.2-1.3); Blood Urea Nitrogen 11 mg/dL (9-20); Carbon Dioxide 27 mmol/L (22-30); Chloride 104 mmol/L (98-107); Estimated CRCL calculation 137 ml/min; Estimated Glomerular Filt Rate > 60; Glucose 143 mg/dL (65-110); Potassium 3.7 mmol/L (3.4-5.0); Sodium 135 mmol/L (137-145)
[2022-10-13] MEDS: chlordiazePOXIDE (*CRX) 25 MG CAPSULE PO (05:34)
[2022-10-13] MEDS: SODIUM CHLORIDE 0.9% IV 1,000 ML 150 ML IV CONT (05:34)
--- NOTE | 2022-10-13 08:58 | WPDGIPROGNO ---
Progress Note: A&P Assessment and Plan (1) GIB (gastrointestinal bleeding): Qualifiers: GI bleed type/associated pathology: unspecified gastrointestinal hemorrhage type Qualified Code(s): K92.2 - Gastrointestinal hemorrhage, unspecified Code(s): K92.2 - Gastrointestinal hemorrhage, unspecified Status: Acute Assessment and Plan: no more gib h/h stable will arrange colonoscopy as outpatient no objections to discharge by gi standpoint (2) Alcoholic ketosis: Code(s): E88.89 - Other specified metabolic disorders Status: Acute Assessment and Plan: resolved (3) Alcohol withdrawal: Qualifiers: Complication of substance-induced condition: with unspecified complication Qualified Code(s): F10.939 - Alcohol use, unspecified with withdrawal, unspecified Code(s): F10.939 - Alcohol use, unspecified with withdrawal, unspecified Status: Acute Assessment and Plan: less tremors and stable on thiamine will need to stop alcohol use (4) Gastritis: Code(s): K29.70 - Gastritis, unspecified, without bleeding Status: Acute Assessment and Plan: mild gastritis ppi daily (5) Dehydration: Code(s): E86.0 - Dehydration Status: Acute Assessment and Plan: resolved Subjective Date/time seen: 10/13/22 08:58 Interval history: less tremulous, he is in good spirits eating, no pain Review of Systems Review of Systems: All systems reviewed & are unremarkable except as noted in HPI and below Exam Const: General: comfortable and no acute distress HENMT: Face/Nose/Sinus: Normal nares present Eyes: General: appearance normal, both eyes and all related structures Neck: Neck: no JVD Resp: Auscultation: clear to auscultation bilaterally Cardio: Rate: regular rate Rhythm: regular rhythm GI: Inspection: non-distended GI Palp: Yes Soft to palpation and No Tenderness to palpation present (GI) Auscultation: normal bowel sounds Skin: General skin exam: normal color Neuro: Speech: normal speech Motor exam (neuro): 5/5 motor strength present throughout Extrem: General: normal to inspection Psych: Mental Status: mental status grossly normal Objective Data Vital Signs Vital Signs: Vital Signs - 24 hr 10/12/22 10:00 10/12/22 11:37 10/12/22 11:38 Temperature 97.6 F Pulse Rate 90 92 104 H Pulse Rate [Monitor] Respiratory Rate 18 Blood Pressure 164/122 H Pulse Oximetry 99 Oxygen Delivery 10/12/22 12:00 10/12/22 12:00 10/12/22 12:00 Temperature Pulse Rate 98 Pulse Rate [Monitor] 93 Respiratory Rate Blood Pressure Pulse Oximetry Oxygen Delivery Room Air 10/12/22 14:00 10/12/22 15:52 10/12/22 16:00 Temperature 97.8 F Pulse Rate 94 91 Pulse Rate [Monitor] 93 Respiratory Rate 16 Blood Pressure 138/91 H 138/91 H Pulse Oximetry 99 Oxygen Delivery 10/12/22 16:00 10/12/22 16:00 10/12/22 18:00 Temperature Pulse Rate 91 96 105 H Pulse Rate [Monitor] Respiratory Rate 16 Blood Pressure Pulse Oximetry 99 Oxygen Delivery Room Air 10/12/22 20:00 10/12/22 20:00 10/12/22 20:00 Temperature 98.5 F Pulse Rate 97 97 Pulse Rate [Monitor] 97 Respiratory Rate 20 20 Blood Pressure 158/98 H 158/98 H Pulse Oximetry 99 99 Oxygen Delivery Room Air 10/12/22 20:00 10/12/22 22:00 10/12/22 23:29 Temperature 98.1 F Pulse Rate 96 94 82 Pulse Rate [Monitor] Respiratory Rate 20 Blood Pressure 158/99 H Pulse Oximetry 99 Oxygen Delivery 10/12/22 23:33 10/12/22 23:33 10/13/22 00:00 Temperature Pulse Rate 82 72 Pulse Rate [Monitor] 82 Respiratory Rate 20 Blood Pressure 158/99 H Pulse Oximetry 99 Oxygen Delivery Room Air 10/13/22 01:15 10/13/22 04:00 10/13/22 04:00 Temperature 97.9 F Pulse Rate 82 84 Pulse Rate [Monitor] 84 Respiratory Rate 20 Blood Pressure 154/96 H 154/96 H Pulse
[2022-10-13] MEDS: THIAMINE HCL 200 MG/2 ML VIAL 100 MG IV PUSH (09:52)
[2022-10-13] MEDS: PANTOPRAZOLE 40 MG TABLET PO (09:52)
--- NOTE | 2022-10-13 11:16 | PM.DS ---
DS: Admitting Diagnosis Discharge Date 10/13/22 Admitting Diagnosis alcohol withdrawal DS: Discharge Diagnosis Discharge Diagnosis (1) Alcohol withdrawal: Qualifiers: Complication of substance-induced condition: with unspecified complication Qualified Code(s): F10.939 - Alcohol use, unspecified with withdrawal, unspecified Code(s): F10.939 - Alcohol use, unspecified with withdrawal, unspecified Status: Acute Assessment and Plan: Supportive care, chlordiazepoxide scheduled, monitor CIWA Thiamine and folate administration, seizure precautions Mild transaminitis, monitor 10/12: CIWA 8, decrease libirum from 50mg to 25 mg q6h, monitor 10/13: CIWA 0, stop librium (2) Hypomagnesemia: Code(s): E83.42 - Hypomagnesemia Status: Acute Assessment and Plan: resolved (3) Rectal bleeding: Code(s): K62.5 - Hemorrhage of anus and rectum Status: Acute Assessment and Plan: Consult GI, PPI b.i.d. 10/12: EGD showed mild gastritis, PPI daily recommended (4) Atypical chest pain: Code(s): R07.89 - Other chest pain Status: Acute Assessment and Plan: resolved (5) Peptic ulcer disease: Code(s): K27.9 - Peptic ulcer, site unspecified, unspecified as acute or chronic, without hemorrhage or perforation Status: Acute Assessment and Plan: See above (6) Hyponatremia: Code(s): E87.1 - Hypo-osmolality and hyponatremia Status: Acute Assessment and Plan: Monitor with gentle IV fluid resuscitation, likely somewhat chronic due to alcoholism 10/12: resolved (7) Hyperglycemia: Code(s): R73.9 - Hyperglycemia, unspecified Status: Acute Assessment and Plan: Check A1c, Accu-Cheks, sliding scale insulin Blood glucose reviewed 10/12 (8) Hypertension: Qualifiers: Hypertension type: unspecified Qualified Code(s): I10 - Essential (primary) hypertension Code(s): I10 - Essential (primary) hypertension Status: Acute Assessment and Plan: Blood pressure reviewed 10/13, lopressor prn Add metoprolol succinate 50 mg daily at d/c, f/u PCP (9) Obesity (BMI 30.0-34.9): Code(s): E66.9 - Obesity, unspecified Status: Acute (10) Perforated left tympanic membrane on examination: Code(s): H72.92 - Unspecified perforation of tympanic membrane, left ear Status: Acute Assessment and Plan: Supportive care, avoid Q-tips, monitor outpatient Plan Suspect sleep apnea, recommend sleep study at discharge DVT prophylaxis with SCDs GI prophylaxis with PPI Code status full code DS: Summary Hospital Course Hospital Course: 32-year-old male with history of alcoholism and peptic ulcer disease presenting with rectal bleeding as well as chest pain and being treated for GI bleed as well as alcohol withdrawal. 10/12: EGD showed mild gastritis, PPI daily recommended. Follow up with GI for outpatient colonoscopy. Supportive care, chlordiazepoxide scheduled, monitor CIWA Thiamine and folate administration, seizure precautions Mild transaminitis, monitor 10/12: CIWA 8, decrease libirum from 50mg to 25 mg q6h, monitor 10/13: CIWA 0, stop librium A1c was 7.2, new onset diabetes, follow-up outpatient with PCP. Start metformin. Please see above and med rec for details. Time Spent with Patient Time attestation: Total time spent providing and/or coordinating discharge services: Exam Narrative: General: No acute distress, alert and oriented per baseline HEENT: Atraumatic, normocephalic, mucous membranes moist CV: Regular rate and rhythm, S1, S2 Lungs: Clear to auscultation bilaterally, no rales or crackles noted, no wheezes, good air entry Abdomen: Soft, nontender, nondistended Extremities: Normal to inspection Skin: No rashes noted, no lesions or wounds seen Psych: More calm today, euthymic mood Neuro: tremulous, non focal
[2022-10-13] MEDS: METOPROLOL SUCCINATE EXT REL 50 MG TABCR PO (11:36)
[2022-10-13 12:31] LABS: Glucose Point of Care 133 mg/dl (65-105)
== END 2022-10-13 11:55 | disposition home or self-care (01) | DRG 378 ==
LOC: ANHED 13:58 → ANHIMU 15:34
PROVIDERS: Internal Medicine Gastroenterology; Admitting Provider Internal Medicine; Emergency Provider Physician Assistant; Visit Provider Student in an Organized Health Care Education/Training Program
PROC: 0DJ08ZZ Inspection of Upper Intestinal Tract, Via Natural or Artificial Opening Endoscopic (ICD-10-PCS; CPT 43235; principal; 2022-10-11 12:30)
DX: K92.2 Gastrointestinal hemorrhage, unspecified (principal); F10.239 Alcohol dependence with withdrawal, unspecified; E87.1 Hypo-osmolality and hyponatremia; G25.2 Other specified forms of tremor; E83.42 Hypomagnesemia; K21.9 Gastro-esophageal reflux disease without esophagitis; K44.9 Diaphragmatic hernia without obstruction or gangrene; E88.89 Other specified metabolic disorders; R07.89 Other chest pain; R73.9 Hyperglycemia, unspecified; I10 Essential (primary) hypertension; E66.9 Obesity, unspecified; E86.0 Dehydration; K29.70 Gastritis, unspecified, without bleeding; H72.92 Unspecified perforation of tympanic membrane, left ear; G47.30 Sleep apnea, unspecified; Z87.11 Personal history of peptic ulcer disease; Z68.32 Body mass index [BMI] 32.0-32.9, adult; Z87.891 Personal history of nicotine dependence
CPT/HCPCS: 36415; 71045; 80053; 80307; 81001; 82948; 83036; 83605; 83690; 83735; 84100; 84443; 84484; 85014; 85018; 85025; 85027; 85055; 85610; 85730; 86850; 86900; 86901; 88305; 93005; 96361; 96365; 96366; 96368; 96375; 96376; 99285; A9270; C9113; G0378; J0360; J1170; J2060; J2405; J2560; J2704; J3010; J3411; J3475; J7030; J7120

== ENCOUNTER 2023-07-03 07:56 | Inpatient (IN) | payer OTHER, SELFPAY ==
[2023-07-03] VITALS (17 sets, daily range): BP systolic 144–214; BP diastolic 87–159; PULSE 69–121; RESP 12–20; TEMP 36.3–37.4; O2SAT 100; BMI 33.3
--- NOTE | 2023-07-03 08:09 | ECG_ITS ---
SEE SCANNED COPY FOR CONFIRMED REPORT MTDD
[2023-07-03] MEDS: SODIUM CHLORIDE 0.9% IV 1,000 ML 999 ML IV CONT ×2 (08:26)
[2023-07-03] MEDS: THIAMINE HCL 200 MG/2 ML VIAL (08:27)
[2023-07-03] MEDS: diazePAM INJ (*CRX) 10 MG/2 ML SYRINGE 5 MG IV PUSH ×4 (08:27→21:10)
[2023-07-03 08:40] LABS: Basophils Absolute Auto 0.1 K/mm3 (0.0-0.1); Basophils Percent Auto 0.6 % (0.2-1.2); Eosinophils Absolute Auto 0.1 K/mm3 (0-0.3); Eosinophils Percent Auto 0.7 % (0-4.4); Hematocrit 46.9 % (42.0-52.0); Hemoglobin 16.5 g/dL (14.0-18.0); Immature Granulocyte Absolute 0.03 K/mm3 (0.00-0.031); Immature Granulocyte Percent A 0.4 % (0-0.5); Lymphocytes Absolute Auto 2.28 K/mm3 (0.9-3.2); Lymphocytes Percent Auto 27.4 % (18.3-44.2); Mean Corpuscular HGB Conc 35.2 g/dl (32-36); Mean Corpuscular Hemoglobin 29.4 pg (26-34); Mean Corpuscular Volume 83.6 fl (80-100); Mean Platelet Volume 10.1 fl (7.4-10.4); Monocytes Absolute Auto 0.6 K/mm3 (0.1-0.6); Monocytes Percent Auto 6.7 % (2.6-8.5); Neutrophils Absolute Auto 5.3 K/mm3 (1.3-6.7); Neutrophils Percent Auto 64.2 % (45.5-73.1); Platelet Count Result 258 k/mm3 (150-375); Red Blood Count 5.61 M/mm3 (4.6-6.20); Red Cell Distribution Width 14.3 % (11.5-14.5); White Blood Count 8.3 K/mm3 (4.5-10.0)
[2023-07-03 08:51] LABS: Alanine Aminotransferase 18 U/L (6-50); Alkaline Phosphatase 127 U/L (38-126); Anion Gap 19 mmol/L (4-12); Aspartate Amino Transferase 22 U/L (17-59); Bilirubin,Total 0.8 mg/dL (0.2-1.3); Blood Urea Nitrogen 7 mg/dL (9-20); Calcium 9.7 mg/dL (8.4-10.2); Carbon Dioxide 15 mmol/L (22-30); Chloride 102 mmol/L (98-107); Estimated CRCL calculation 135 ml/min; Estimated Glomerular Filt Rate > 60; Ethanol 12 mg/dL (<10); Glucose 200 mg/dL (65-110); Magnesium 1.6 mg/dL (1.6-2.3); Phosphorus 1.8 mg/dL (2.5-4.5); Potassium 3.7 mmol/L (3.4-5.0); Sodium 136 mmol/L (137-145)
[2023-07-03 08:52] LABS: Prothrombin Time 13.5 Seconds (11.1-14.7)
--- NOTE | 2023-07-03 10:03 | ED.ALCOHOL ---
HPI - Alcohol General Chief Complaint: Alcohol Stated Complaint: im an alcoholic and need detox Time Seen by Provider: 07/03/23 08:00 History of Present Illness HPI narrative: Patient is a 33-year-old male with history of alcoholism who presents ER and withdrawal. Patient had his last drink last night. He drinks 18-20 shots of vodka daily. He is diaphoretic and tremulous. He reports he has depression and drinks because this. He does have a son who he takes care of as currently with the patient's mother. He wants to become sober for him. He contacted [facility] but they had no detox beds for him. No SI. He does have vomiting. Related Data Allergies Allergy/AdvReac Type Severity Reaction Status Date / Time No Known Allergies Allergy Verified 07/03/23 07:56 Review of Systems Review of Systems: All systems reviewed & are unremarkable except as noted in HPI and below Constitutional: Constitutional: Denies chills and Denies fatigue Comments: Diaphoretic ENT: Reports system reviewed and no additional complaints, except as documented Cardiovascular: Cardiovascular: Reports no additional cardiovascular complaints Respiratory: Respiratory: Reports no additional respiratory complaints Gastrointestinal: Gastrointestinal: Denies abdominal pain, Denies diarrhea, Reports nausea and Reports vomiting Genitourinary: Genitourinary: Reports no additional male genitourinary complaints Psychiatric: Psychiatric: Reports anxiety, Reports depression, Denies homicidal ideation and Denies suicidal ideation [facility], [facility] Past Medical History Medical History (Updated 07/03/23 @ 10:05 by Raúl Cuellar MD) Alcoholism Dehydration Gastritis GERD (gastroesophageal reflux disease) Marijuana use, continuous Daily Obesity (BMI 30.0-34.9) Peptic ulcer disease Surgical History Surgical History History of adenoidectomy Family History Family History (Updated 10/10/22 @ 20:14 by Cheri Darnell RN) Father Diabetes mellitus Mother Diabetes mellitus Heart attack Grandparent Diabetes mellitus Heart disease Malignant neoplasm of prostate Social History Social History Smoking status: Former smoker Alcohol intake: current Drinks per week: 84 Alcohol use details: Alcoholism Substance use: current Substance use type: marijuana Last use: 10/10/22 Lack of Transportation: No Lack of Food: Never True Current Housing: I Have Housing Concerned About Future Housing: No Difficulty Paying Gas/Electric Bills: No Difficulty Paying for Meds: No Currently Unemployed: No Education: Trade/Vocational Certificate Difficulty w/ Childcare or Family Care: No Spiritual care concerns: No Exam Narrative: GENERAL:Ill-appearing, obese, diaphoretic. HEAD: Normocephalic, atraumatic. EYES: PERRL and EOMI. ENT: Mucous membranes moist. CHEST: Clear to auscultation. No respiratory distress. HEART: Tachycardic and regular. Normal peripheral pulses. ABDOMEN: Soft, nontender, nondistended. EXTREMITIES: Normal range of motion. No edema. SKIN: Warm, diaphoretic, no rash. NEURO: Alert and oriented x3. PSYCH: Normal mood and affect. Course Course Emergency Course: With patient with significant improvement after 10 mg of Valium. He is still nauseous. He has received IV thiamine. His also received antiemetics. Admit for observation to the hospitalist service for alcohol withdrawal. Patient is clinically improving with hydration and anxiolytics. Vital Signs Vital signs: Vital Signs Temperature 98.3 F 07/03/23 08:01 Pulse Rate 121 H 07/03/23 08:01 Respiratory Rate 18 07/03/23 08:01 Blood Pressure 214/115 H 07/03/23 08:01 Pulse Oximetry 100 07/03/23 08:01 Oxygen Delivery Room Air 07/03/23 08:01 Temperature 98.3 F 07/03/23 08:01 Pulse Rate 91
[2023-07-03] MEDS: BELLADONNA ALK/PHENOB ELIX 10 ML, MAG HYDROX/ALUMINUM HYD/SIMETH 30 ML, LIDOCAINE HCL 2... PO (10:05)
[2023-07-03] MEDS: PANTOPRAZOLE SODIUM IV 40 MG VIAL IV PUSH (10:05)
[2023-07-03] MEDS: ONDANSETRON INJ 4 MG/2 ML VIAL IV PUSH ×2 (10:08→14:00)
[2023-07-03 10:31] LABS: Alveolar/Arterial O2 Gradient 29.9 mmHg; Base Excess ABG -1.1 mEq/l (+/-2.0); Carboxyhemoglobin 0.5 % THb (0-2.0); Fractional Inspired Oxygen 21 %; HCO3 ABG 18.9 mEq/l (22.0-26.0); Methemoglobin ABG 0.2 %THb (0-1.5); Oxygen Content ABG 21.7 %vol (16.0-22.0); Oxyhemoglobin 96.7 % THb (90.0-100.0); PO2 ABG 93.1 mmHg (80.0-100.0); PO2 FiO2 Ratio Arterial Blood 4.43 %; Reduced Hemoglobin 2.6 %THb (0-5.0); Total Hemoglobin 15.9 g/dL (12.0-18.0)
[2023-07-03 10:35] LABS: PCO2 ABG 22.3 mmHg (35.0-45.0); pH ABG 7.546 (7.350-7.450)
[2023-07-03 10:36] LABS: Device ROOM AIR; Modified Allen's Test Pass; Site Drawn LEFT RADIAL
--- NOTE | 2023-07-03 12:34 | PM.IMHP ---
H&P: HPI History of Present Illness Date/Time: 07/03/23 13:45 Chief Complaint: Alcohol Withdrawal Narrative: 33 y/o M presents here with acute alcohol withdrawal with PMH of alcoholism, gastritis, PUD, HTN, and obesity. Patient presents here from home with acute alcohol withdrawal. Patient reports last drink on 07/01 at 2100. Has been struggling with alcohol abuse for the past 11 years. Has previously been in recovery 2 times, more recent from January 31 to April. Reattempted to quit later in Apr but relapsed again in mid May. Reports relapse due to an argument with a friend. Currently drinks approximately 18-20 shots of hard liquor per day. Stating he would like to get sober because he has a young son (age 13) who is currently at home, patient lives with his parents who are currently caring for him. When patient initially came in he was having intermittent headaches, auditory hallucinations (had a conversation with his grandma), spots in his vision described as black pinpoint spots that are floating and bilateral, tremors, nausea/vomiting, chills, and diaphoresis. Patient is currently experiencing same symptoms, have been coming in waves. Dark stools, not black, no hematemesis, or BRB per rectum. Initial CIWA was 18. Initial VS at presentation: 98.3? F, HR 121, RR 18, 214/115, and 100% on RA. ED workup showed: no leukocytosis, no anemia, gap of 19, glucose 200, phosphorus 1.8, ETOH 12. ABG showed pH of 7.546, CO2 22.3, and bicarb 18.9. Review of Systems Review of Systems: All systems reviewed & are unremarkable except as noted in HPI and below PMFSH Past Medical History Medical History (Updated 07/03/23 @ 12:49 by Courtney Kent APRN) Alcohol withdrawal Alcoholism Gastritis GERD (gastroesophageal reflux disease) GIB (gastrointestinal bleeding) Hypertension Marijuana use, continuous Daily Obesity (BMI 30.0-34.9) Peptic ulcer disease Surgical History Surgical History History of adenoidectomy Family History Family History Father Diabetes mellitus Mother Diabetes mellitus Heart attack Grandparent Diabetes mellitus Heart disease Malignant neoplasm of prostate Social History Social History Smoking status: Never smoker Alcohol intake: current Drinks per week: 85 Alcohol use details: Alcoholism Substance use: current Substance use type: marijuana Last use: 07/03/2023 Do You Feel Safe in your Home?: Yes Lack of Transportation: No Lack of Food: Never True Current Housing: I Have Housing Concerned About Future Housing: No Difficulty Paying Gas/Electric Bills: No Difficulty Paying for Meds: No Currently Unemployed: No Education: High School Diploma/GED Difficulty w/ Childcare or Family Care: No Spiritual care concerns: No Meds Home Medications and Allergies Home Medications Medication Instructions Recorded Confirmed Type losartan 25 mg tablet 25 mg PO DAILY 07/03/23 07/03/23 History Allergies Allergy/AdvReac Type Severity Reaction Status Date / Time No Known Allergies Allergy Verified 07/03/23 07:56 Vital Signs Vital Signs - 24 hr 07/03/23 08:01 07/03/23 08:59 07/03/23 09:06 Temperature 98.3 F Pulse Rate 121 H 99 92 Respiratory Rate 18 12 13 Blood Pressure 214/115 H 165/111 H 162/120 H Pulse Oximetry 100 100 100 Oxygen Delivery Room Air 07/03/23 09:16 07/03/23 10:06 07/03/23 09:45 Temperature Pulse Rate 91 98 96 Respiratory Rate 13 18 14 Blood Pressure 158/116 H 160/115 H Pulse Oximetry 100 100 100 Oxygen Delivery 07/03/23 10:00 07/03/23 10:16 07/03/23 11:09 Temperature 99.4 F Pulse Rate 87 89 81 Respiratory Rate 13 14 12 Blood Pressure 172/159 H 158/87 H Pulse Oximetry 100 100 100 Oxygen Delivery Exam Const: General: n
[2023-07-03] MEDS: SODIUM CHLORIDE 0.9% IV 1,000 ML 125 ML IV CONT ×2 (13:54→21:21)
[2023-07-03] MEDS: LOSARTAN POTASSIUM 25 MG TABLET PO (13:55)
[2023-07-03] MEDS: FOLIC ACID 1 MG TABLET PO (13:55)
[2023-07-03] MEDS: chlordiazePOXIDE (*CRX) 25 MG CAPSULE PO (17:05)
[2023-07-03 18:20] LABS: Glucose Point of Care 148 mg/dl (65-105)
[2023-07-03] MEDS: MELATONIN 5 MG TABLET PO (21:10)
[2023-07-04] VITALS (11 sets, daily range): BP systolic 134–168; BP diastolic 85–112; PULSE 58–100; RESP 18–20; TEMP 35.6–37; O2SAT 100
[2023-07-04 00:18] LABS: Glucose Point of Care 120 mg/dl (65-105)
[2023-07-04] MEDS: chlordiazePOXIDE (*CRX) 25 MG CAPSULE PO ×4 (00:24→21:20)
[2023-07-04] MEDS: diazePAM INJ (*CRX) 10 MG/2 ML SYRINGE 5 MG IV PUSH ×2 (03:30→21:21)
[2023-07-04 04:24] LABS: Basophils Percent Auto 0.4 % (0.2-1.2); Eosinophils Absolute Auto 0.1 K/mm3 (0-0.3); Eosinophils Percent Auto 1.4 % (0-4.4); Hematocrit 44.3 % (42.0-52.0); Hemoglobin 14.4 g/dL (14.0-18.0); Immature Granulocyte Absolute 0.02 K/mm3 (0.00-0.031); Immature Granulocyte Percent A 0.3 % (0-0.5); Lymphocytes Absolute Auto 3.22 K/mm3 (0.9-3.2); Lymphocytes Percent Auto 46.3 % (18.3-44.2); Mean Corpuscular HGB Conc 32.5 g/dl (32-36); Mean Corpuscular Volume 89.1 fl (80-100); Mean Platelet Volume 10.2 fl (7.4-10.4); Monocytes Absolute Auto 0.6 K/mm3 (0.1-0.6); Monocytes Percent Auto 9.2 % (2.6-8.5); Neutrophils Percent Auto 42.4 % (45.5-73.1); Platelet Count Result 213 k/mm3 (150-375); Red Blood Count 4.97 M/mm3 (4.6-6.20); Red Cell Distribution Width 14.6 % (11.5-14.5)
[2023-07-04 04:32] LABS: Hemoglobin A1C 6.7 % (<5.7)
[2023-07-04 04:38] LABS: Alanine Aminotransferase 14 U/L (6-50); Albumin Level 4.3 g/dL (3.5-5.1); Alkaline Phosphatase 83 U/L (38-126); Anion Gap 11 mmol/L (4-12); Aspartate Amino Transferase 27 U/L (17-59); Blood Urea Nitrogen 10 mg/dL (9-20); Calcium 9.4 mg/dL (8.4-10.2); Carbon Dioxide 23 mmol/L (22-30); Chloride 106 mmol/L (98-107); Estimated CRCL calculation 111 ml/min; Estimated Glomerular Filt Rate > 60; Glucose 128 mg/dL (65-110); Phosphorus 4.1 mg/dL (2.5-4.5); Sodium 140 mmol/L (137-145)
[2023-07-04] MEDS: SODIUM CHLORIDE 0.9% IV 1,000 ML 125 ML IV CONT (05:21)
[2023-07-04] MEDS: PANTOPRAZOLE SODIUM IV 40 MG VIAL IV PUSH (08:19)
[2023-07-04] MEDS: THIAMINE HCL 200 MG/2 ML VIAL 100 MG IV PUSH (08:19)
[2023-07-04] MEDS: FOLIC ACID 1 MG TABLET PO (08:19)
[2023-07-04] MEDS: LOSARTAN POTASSIUM 25 MG TABLET PO (08:19)
--- NOTE | 2023-07-04 08:20 | PM.IMPN ---
Progress Note: A&P Assessment and Plan (1) GERD (gastroesophageal reflux disease): Code(s): K21.9 - Gastro-esophageal reflux disease without esophagitis Status: Acute (2) Hypertension: Qualifiers: Hypertension type: unspecified Qualified Code(s): I10 - Essential (primary) hypertension Code(s): I10 - Essential (primary) hypertension Status: Acute (3) Alcohol withdrawal: Code(s): F10.939 - Alcohol use, unspecified with withdrawal, unspecified Status: Acute (4) Depression: Code(s): F32.A - Depression, unspecified Status: Acute Plan Mr. Valarie duran is a pleasant 33-year-old male with a history of alcohol use disorder, depression, marijuana use, gastritis, peptic ulcer disease, hypertension, obesity, diet managed diabetes mellitus presenting with acute alcohol withdrawal. His last drink was on 07/01 at 9:00 p.m.. He has been abusing alcohol for 11 years and in recovery 2 times. He has had multiple relapses. He drinks about 18-20 shots of hard liquor per day. He lives with his son age 13 and his parents. 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 He has poor diet choices because of the alcoholism. He wants to get better for his son. On this admission he reports having headaches and auditory hallucinations, having had conversations with his grandmother. Also positive for seeing floaters, tremors, nausea vomiting, chills, diaphoresis. Reports dark stools as well. Alcohol withdrawal with auditory hallucinations -ethanol on admission 12 mg/dL -diazepam 5 mg IV q.2 hours p.r.n. and Librium 25 mg p.o. q.6 hours p.r.n.. He has been receiving both of these. CIWA score 16 at 4:00 a.m. this morning. Upon evaluation at 8am he appears calm and stable. He had denies any more auditory hallucinations. Still seeing some floaters. -discontinue IV fluids. Continue thiamine and folate. He is eating. Transfer to medical floor. Alcohol use disorder -he has had multiple relapses. He is very motivated to quit. Care coordination note appreciated. However, the patient reported no one came to talk to him. Nurse Katherine reports she will ensure that resources are provided. The patient has been trying to get into acute rehab but they have been full. He denies any other substance abuse aside from vaping THC. He has been counseled on the effects of THC as well. He is amenable to pharmacological therapy in addition to psychosocial therapy. Consider naltrexone initiation at discharge. Recent retrospective cohort studies support better outcomes with NICK at discharge https://www.ncbi.nlm.nih.gov/pmc/articles/CPT28069060/ Diet managed diabetes mellitus -physical sciences professor consulted. HbA1c in 2022 7.2% and on this admission 6.7%. Patient prefers to continue to attempt diet control. -he is on losartan 25 mg p.o. q.day Hypertension -continue losartan 25 mg p.o. q.day Gastritis/PUD -Protonix daily. He takes omeprazole intermittently at home. Reports he tries not to take NSAIDs. Advised he refrain from NSAID use altogether. On admission he reported dark stools. Stool occult pending. Hemoglobin stable Respiratory alkalosis with partial metabolic compensation -likely due to hyperventilation due to his alcohol withdrawal. He presented with a mild hyponatremia and anion gap of 19. Anion gap and metabolic acidosis has since corrected based on the Chem 7. Depression -he did not know which antidepressant he took in December but reports it made him feel wacky. It looks like in the prescriptions it was escitalopram. -denies suicidal ideation. Concomitant treatment of his depression and alcohol use disorder is prudent FEN: Discontinue fluids. Patient tolerating diet. GI prophylaxis: Protonix 40 mg IV q.a.m. DVT prophylaxis: Lovenox 40 mg subQ q.day Lines: Peripheral IV Code Status: Full code Dispo: Stable. Transfer to medical floor Subjective Date/time seen: 07/03
[2023-07-04 08:30] LABS: Glucose Point of Care 165 mg/dl (65-105)
[2023-07-04] MEDS: ENOXAPARIN 40 MG/0.4 ML SYRINGE SUB-Q (09:12)
--- NOTE | 2023-07-04 11:15 | PC.NURSE ---
This patient, Almas Sheppard, was transferred to [[facility]] on 07/04/23 at 1115. Personal belongings sent with patient. Report given to [Danyelle FALK]. Appropriate documentation sent with patient.
--- NOTE | 2023-07-04 11:19 | ADMGEN ---
This patient, Almas Sheppard, was transferred to [address] [place] [address] Room 331-02 from IMU Room 205. Report was taken from Katherine prior to transfer.Patient/family oriented to hospital policies and general routines including ID bracelet, bed and alarms, visiting hours, pain management, procedures, bathroom and other care routines, personal items, smoking policy, room service/diet, and visiting hours. Information on how to activate the Rapid Response Team has been discussed. Patient/Family are encouraged to report perceived risks to care and to ask questions if they do not understand what they are told or what they should do.
[2023-07-04 11:35] LABS: Glucose Point of Care 163 mg/dl (65-105)
--- NOTE | 2023-07-04 15:07 | PCCDE ---
Consult received /; RN called and sts pt A1c was over 7%; now 6.7% and pt has questions. Met with pt; pt sts he already saw the dietitian and his questions are answered. Will be available per request.
[2023-07-04 18:05] LABS: Glucose Point of Care 125 mg/dl (65-105)
[2023-07-04 20:53] LABS: Glucose Point of Care 144 mg/dl (65-105)
[2023-07-04] MEDS: ONDANSETRON INJ 4 MG/2 ML VIAL IV PUSH (21:20)
[2023-07-04] MEDS: ACETAMINOPHEN 325 MG TABLET 650 MG PO (21:20)
[2023-07-04] MEDS: MELATONIN 5 MG TABLET PO (21:21)
[2023-07-04 23:52] LABS: Glucose Point of Care 134 mg/dl (65-105)
[2023-07-05] VITALS: BP 137/92; PULSE 86; RESP 18; TEMP 36.1; O2SAT 100
[2023-07-05 04:00] VITALS: BP 157/95; PULSE 73; RESP 18; TEMP 36.6; O2SAT 100
[2023-07-05] MEDS: chlordiazePOXIDE (*CRX) 25 MG CAPSULE PO ×4 (05:34→21:06)
[2023-07-05] MEDS: ONDANSETRON INJ 4 MG/2 ML VIAL IV PUSH (05:35)
[2023-07-05 05:45] LABS: Glucose Point of Care 145 mg/dl (65-105)
[2023-07-05 06:14] LABS: Basophils Absolute Auto 0.1 K/mm3 (0.0-0.1); Basophils Percent Auto 0.8 % (0.2-1.2); Eosinophils Absolute Auto 0.2 K/mm3 (0-0.3); Eosinophils Percent Auto 2.8 % (0-4.4); Hemoglobin 14.8 g/dL (14.0-18.0); Immature Granulocyte Absolute 0.02 K/mm3 (0.00-0.031); Immature Granulocyte Percent A 0.3 % (0-0.5); Lymphocytes Percent Auto 39.3 % (18.3-44.2); Mean Corpuscular HGB Conc 32.2 g/dl (32-36); Mean Corpuscular Hemoglobin 28.8 pg (26-34); Mean Corpuscular Volume 89.5 fl (80-100); Monocytes Absolute Auto 0.7 K/mm3 (0.1-0.6); Monocytes Percent Auto 9.1 % (2.6-8.5); Neutrophils Absolute Auto 3.8 K/mm3 (1.3-6.7); Neutrophils Percent Auto 47.7 % (45.5-73.1); Platelet Count Result 207 k/mm3 (150-375); Red Blood Count 5.14 M/mm3 (4.6-6.20); Red Cell Distribution Width 14.1 % (11.5-14.5); White Blood Count 7.9 K/mm3 (4.5-10.0)
[2023-07-05 07:30] LABS: Alanine Aminotransferase 14 U/L (6-50); Albumin Level 4.5 g/dL (3.5-5.1); Alkaline Phosphatase 102 U/L (38-126); Anion Gap 12 mmol/L (4-12); Aspartate Amino Transferase 25 U/L (17-59); Blood Urea Nitrogen 13 mg/dL (9-20); Carbon Dioxide 26 mmol/L (22-30); Chloride 103 mmol/L (98-107); Estimated CRCL calculation 100 ml/min; Estimated Glomerular Filt Rate > 60; Glucose 147 mg/dL (65-110); Sodium 141 mmol/L (137-145)
[2023-07-05 08:00] VITALS: BP 117/84; PULSE 79; RESP 18; TEMP 36.4; O2SAT 100
[2023-07-05] MEDS: ENOXAPARIN 40 MG/0.4 ML SYRINGE SUB-Q (08:24)
[2023-07-05] MEDS: THIAMINE HCL 200 MG/2 ML VIAL 100 MG IV PUSH (08:24)
[2023-07-05] MEDS: PANTOPRAZOLE SODIUM IV 40 MG VIAL IV PUSH (08:25)
[2023-07-05] MEDS: diazePAM INJ (*CRX) 10 MG/2 ML SYRINGE 5 MG IV PUSH (08:32)
[2023-07-05] MEDS: ACETAMINOPHEN 325 MG TABLET 650 MG PO ×2 (08:33→21:07)
[2023-07-05] MEDS: LOSARTAN POTASSIUM 25 MG TABLET PO (08:34)
[2023-07-05] MEDS: FOLIC ACID 1 MG TABLET PO (08:34)
[2023-07-05 12:00] VITALS: BP 138/106; PULSE 90; RESP 18; TEMP 36.6; O2SAT 100
[2023-07-05 12:26] LABS: Glucose Point of Care 153 mg/dl (65-105)
--- NOTE | 2023-07-05 15:37 | PM.IMPN ---
Progress Note: A&P Assessment and Plan (1) Alcohol withdrawal: Code(s): F10.939 - Alcohol use, unspecified with withdrawal, unspecified Status: Acute Assessment and Plan: 07/04 day 3 of withdrawal, scheduled Librium with p.r.n. Ativan, consider tapering Librium 07/05 (2) Depression: Code(s): F32.A - Depression, unspecified Status: Acute Assessment and Plan: is on waiting list for [facility] inpatient when 28 day program (3) Hypertension: Qualifiers: Hypertension type: unspecified Qualified Code(s): I10 - Essential (primary) hypertension Code(s): I10 - Essential (primary) hypertension Status: Acute Assessment and Plan: continue losartan (4) Atypical chest pain: Code(s): R07.89 - Other chest pain Status: Acute Assessment and Plan: likely related to anxiety and withdrawal Subjective Date/time seen: 07/05/23 15:37 Interval history: 33-year-old gentleman is here for alcohol withdrawal. Tried to stop drinking at home. Last strength 07/01. Admitted 07/02. States diazepam causes him to feel dysphoric. Currently feeling anxious. CIWA score earlier was 20. Doing much better this afternoon. Relates history of chronic depression and anxiety. Uses alcohol to self medicate wants was drinking up to 18 shots of hard liquor per day. 07/04 experienced burning with inspiration bilateral chest. S pain or shortness of breath. No leg swelling nausea or vomiting or GI urgent Review of Systems Review of Systems: All systems reviewed & are unremarkable except as noted in HPI and below Exam Narrative: HEENT: PERRL, sclerae nonicteric, pharyngeal mucosa pink and intact NECK: No JVD, adenopathy, or thyromegaly CHEST: Clear to auscultation. Normal effort. HEART: NL S1/S2, regular, no murmur ABDOMEN: BS+, soft, nontender, no mass, no bruits EXTREMITIES: No cyanosis, edema, or clubbing NEUROLOGIC: CN intact and symmetric to inspection. MUSCULOSKELETAL: Tone and strength symmetric. PSYCH: Alert. Oriented to person, place, and time. Objective Data Vital Signs Vital Signs: Vital Signs - 24 hr 07/04/23 16:00 07/04/23 16:42 07/04/23 20:00 Temperature 98.0 F 98.6 F Pulse Rate 80 79 Respiratory Rate 18 18 Blood Pressure 141/112 H 140/98 H 144/102 H Pulse Oximetry 100 100 07/05/23 00:00 07/05/23 04:00 07/05/23 08:00 Temperature 97 F L 97.9 F 97.6 F Pulse Rate 86 73 79 Respiratory Rate 18 18 18 Blood Pressure 137/92 H 157/95 H 117/84 Pulse Oximetry 100 100 100 07/05/23 12:00 Temperature 97.8 F Pulse Rate 90 Respiratory Rate 18 Blood Pressure 138/106 H Pulse Oximetry 100 Intake/Output Intake/Output: Intake & Output 07/02/23 07/03/23 07/04/23 07/05/23 23:59 23:59 23:59 23:59 Intake Total 3351.3 2650 980 Output Total 1600 2 Balance 3351.3 1050 978 Meds/Results Medications: Active Medications Generic Name Dose Route Start Last Admin Trade Name Freq PRN Reason Stop Dose Admin Acetaminophen 650 mg 07/03/23 10:06 07/05/23 08:33 Acetaminophen 325 Mg Tablet PO 650 mg Q4H PRN Administration Mild Pain (1-3) or Fever Hydrocodone Bitart/Acetaminophen 1 tab 07/03/23 10:06 Hydrocodone/Acetaminophen (*Crx) 5-325 Mg Tablet PO Q4H PRN Pain Rated 4-6 Calcium Carbonate 200 mg 07/03/23 12:50 Calcium Carbonate (Tums) 500 Mg (200 Mg Elemental) PO Q6H PRN Indigestion Chlordiazepoxide HCl 25 mg 07/05/23 16:00 Chlordiazepoxide (*Crx) 25 Mg Capsule PO Q6H RUPINDER Docusate Sodium 100 mg 07/03/23 13:57 Docusate Sodium 100 Mg Capsule PO Q12H PRN Constipation Enoxaparin Sodium 40 mg 07/04/23 09:00 07/05/23 08:24 Enoxaparin 40 Mg/0.4 Ml Syringe SUB-Q 40 mg DAILY RUPINDER Administration Folic Acid 1 mg 07/03/23 12:45 07/05/23 08:34 Folic Acid 1 Mg Tablet PO 1 mg DAILY RUPINDER Administration Lorazepam 1 mg 07/05/23 15
[2023-07-05 16:00] VITALS: BP 149/109; PULSE 89; RESP 18; TEMP 36.7; O2SAT 100
[2023-07-05 18:26] LABS: Glucose Point of Care 175 mg/dl (65-105)
[2023-07-05 20:00] VITALS: BP 137/89; PULSE 86; RESP 18; TEMP 36.9; O2SAT 100
[2023-07-05] MEDS: MELATONIN 5 MG TABLET PO (21:06)
[2023-07-06] VITALS: BP 127/87; PULSE 77; RESP 20; TEMP 36.6; O2SAT 100
[2023-07-06 01:05] LABS: Glucose Point of Care 134 mg/dl (65-105)
[2023-07-06 04:00] VITALS: BP 123/59; PULSE 81; RESP 18; TEMP 36.5; O2SAT 98
[2023-07-06] MEDS: chlordiazePOXIDE (*CRX) 25 MG CAPSULE PO ×3 (04:28→22:23)
[2023-07-06 05:42] LABS: Hemoglobin A1C 6.6 % (<5.7)
[2023-07-06 05:43] LABS: Anion Gap 8 mmol/L (4-12); Blood Urea Nitrogen 14 mg/dL (9-20); Calcium 9.5 mg/dL (8.4-10.2); Carbon Dioxide 26 mmol/L (22-30); Chloride 103 mmol/L (98-107); Estimated CRCL calculation 109 ml/min; Estimated Glomerular Filt Rate > 60; Glucose 114 mg/dL (65-110); Potassium 3.7 mmol/L (3.4-5.0); Sodium 137 mmol/L (137-145)
[2023-07-06 06:07] LABS: Glucose Point of Care 132 mg/dl (65-105)
[2023-07-06 08:00] VITALS: BP 180/101; PULSE 80; RESP 16; TEMP 36.3; O2SAT 99
[2023-07-06] MEDS: FOLIC ACID 1 MG TABLET PO (09:06)
[2023-07-06] MEDS: LOSARTAN POTASSIUM 25 MG TABLET PO (09:06)
[2023-07-06] MEDS: ENOXAPARIN 40 MG/0.4 ML SYRINGE SUB-Q (09:06)
[2023-07-06] MEDS: THIAMINE HCL 200 MG/2 ML VIAL 100 MG IV PUSH (09:06)
[2023-07-06 12:00] VITALS: BP 150/101; PULSE 107; RESP 16; TEMP 36.4; O2SAT 100
[2023-07-06 12:25] LABS: Glucose Point of Care 133 mg/dl (65-105)
--- NOTE | 2023-07-06 12:45 | PM.IMPN ---
Progress Note: A&P Assessment and Plan (1) Alcohol withdrawal: Code(s): F10.939 - Alcohol use, unspecified with withdrawal, unspecified Status: Acute Assessment and Plan: 07/04 day 3 of withdrawal, scheduled Librium with p.r.n. Ativan 07/05 day 4 of withdrawal and doing well. Taper Librium. 07/06 scheduled to be admitted to [place] inpatient. (2) Depression: Code(s): F32.A - Depression, unspecified Status: Acute Assessment and Plan: is on waiting list for [facility] inpatient when 28 day program (3) Hypertension: Qualifiers: Hypertension type: unspecified Qualified Code(s): I10 - Essential (primary) hypertension Code(s): I10 - Essential (primary) hypertension Status: Acute Assessment and Plan: continue losartan (4) Atypical chest pain: Code(s): R07.89 - Other chest pain Status: Acute Assessment and Plan: likely related to anxiety and withdrawal Subjective Date/time seen: 07/06/23 12:45 Interval history: Was depressed this morning but feeling much better this afternoon after meditation. Tolerating diet. Up and about independently in room. Review of Systems Review of Systems: All systems reviewed & are unremarkable except as noted in HPI and below Exam Narrative: HEENT: PERRL, sclerae nonicteric, pharyngeal mucosa pink and intact NECK: No JVD, adenopathy, or thyromegaly CHEST: Clear to auscultation. Normal effort. HEART: NL S1/S2, regular, no murmur ABDOMEN: BS+, soft, nontender, no mass, no bruits EXTREMITIES: No cyanosis, edema, or clubbing NEUROLOGIC: CN intact and symmetric to inspection. MUSCULOSKELETAL: Tone and strength symmetric. PSYCH: Alert. Oriented to person, place, and time. Objective Data Vital Signs Vital Signs: Vital Signs - 24 hr 07/05/23 16:00 07/05/23 20:00 07/06/23 00:00 Temperature 98.1 F 98.4 F 97.9 F Pulse Rate 89 86 77 Respiratory Rate 18 18 20 Blood Pressure 149/109 H 137/89 127/87 Pulse Oximetry 100 100 100 07/06/23 04:00 07/06/23 08:00 Temperature 97.7 F 97.3 F L Pulse Rate 81 80 Respiratory Rate 18 16 Blood Pressure 123/59 L 180/101 H Pulse Oximetry 98 99 Intake/Output Intake/Output: Intake & Output 07/03/23 07/04/23 07/05/23 07/06/23 23:59 23:59 23:59 23:59 Intake Total 3351.3 2650 1720 840 Output Total 1600 2 Balance 3351.3 1050 1718 840 Meds/Results Medications: Active Medications Generic Name Dose Route Start Last Admin Trade Name Freq PRN Reason Stop Dose Admin Acetaminophen 650 mg 07/03/23 10:06 07/05/23 21:07 Acetaminophen 325 Mg Tablet PO 650 mg Q4H PRN Administration Mild Pain (1-3) or Fever Hydrocodone Bitart/Acetaminophen 1 tab 07/03/23 10:06 Hydrocodone/Acetaminophen (*Crx) 5-325 Mg Tablet PO Q4H PRN Pain Rated 4-6 Calcium Carbonate 200 mg 07/03/23 12:50 Calcium Carbonate (Tums) 500 Mg (200 Mg Elemental) PO Q6H PRN Indigestion Chlordiazepoxide HCl 25 mg 07/05/23 16:00 07/06/23 04:28 Chlordiazepoxide (*Crx) 25 Mg Capsule PO 25 mg Q6H RUPINDER Administration Docusate Sodium 100 mg 07/03/23 13:57 Docusate Sodium 100 Mg Capsule PO Q12H PRN Constipation Enoxaparin Sodium 40 mg 07/04/23 09:00 07/06/23 09:06 Enoxaparin 40 Mg/0.4 Ml Syringe SUB-Q 40 mg DAILY RUPINDER Administration Folic Acid 1 mg 07/03/23 12:45 07/06/23 09:06 Folic Acid 1 Mg Tablet PO 1 mg DAILY RUPINDER Administration Lorazepam 1 mg 07/05/23 15:27 Lorazepam Inj (*Crx) 2 Mg/Ml Vial IV PUSH Q2H PRN CIWA 10 or above Losartan Potassium 25 mg 07/03/23 12:55 07/06/23 09:06 Losartan Potassium 25 Mg Tablet PO 25 mg DAILY RUPINDER Administration Melatonin 5 mg 07/03/23 21:00 07/05/23 21:06 Melatonin 5 Mg Tablet PO 5 mg HS RUPINDER Administration Ondansetron HCl 4 mg 07/03/23 10:06 07/05/23 05:35 Ondansetron Inj 4 Mg/2 Ml Vial IV PUSH
[2023-07-06 16:00] VITALS: BP 123/87; PULSE 104; RESP 18; TEMP 36.4; O2SAT 100
[2023-07-06 20:00] VITALS: BP 118/75; PULSE 103; RESP 20; TEMP 36.2; O2SAT 100
[2023-07-06] MEDS: MELATONIN 5 MG TABLET PO (22:20)
[2023-07-07] VITALS (9 sets, daily range): BP systolic 116–147; BP diastolic 81–112; PULSE 85–116; RESP 16–18; TEMP 36.1–36.6; O2SAT 98–100
[2023-07-07] MEDS: ENOXAPARIN 40 MG/0.4 ML SYRINGE SUB-Q (08:26)
[2023-07-07] MEDS: LOSARTAN POTASSIUM 25 MG TABLET PO (08:27)
[2023-07-07] MEDS: FOLIC ACID 1 MG TABLET PO (08:27)
[2023-07-07] MEDS: chlordiazePOXIDE (*CRX) 25 MG CAPSULE PO ×2 (08:30→20:43)
--- NOTE | 2023-07-07 09:23 | PC.NURSE ---
0900 Dr Leal notified of patient c/o face slightly numb in cheeks and feel puffy. Bp 147/112 and patient states he feels anxious. Librium and bp meds given.
[2023-07-07] MEDS: THIAMINE HCL 100 MG TABLET PO (12:15)
[2023-07-07] MEDS: LORazepam INJ (*CRX) 2 MG/ML VIAL 1 MG IV PUSH (14:31)
--- NOTE | 2023-07-07 15:25 | PC.NURSE ---
Dr Leal notified of CIWA 20 this afternoon and had to givr ativan IV
--- NOTE | 2023-07-07 15:43 | PM.IMPN ---
Progress Note: A&P Assessment and Plan (1) Alcohol withdrawal: Code(s): F10.939 - Alcohol use, unspecified with withdrawal, unspecified Status: Acute Assessment and Plan: pt needing iv ativan today plan to taper librium molly and DC to [place] (2) Depression: Code(s): F32.A - Depression, unspecified Status: Acute Assessment and Plan: is on waiting list for [facility] inpatient when 28 day program (3) Hypertension: Qualifiers: Hypertension type: unspecified Qualified Code(s): I10 - Essential (primary) hypertension Code(s): I10 - Essential (primary) hypertension Status: Acute Assessment and Plan: continue losartan (4) Atypical chest pain: Code(s): R07.89 - Other chest pain Status: Acute Assessment and Plan: likely related to anxiety and withdrawal Subjective Date/time seen: 07/07/23 15:43 Interval history: 33 y/o M presents here with acute alcohol withdrawal with PMH of alcoholism, gastritis, PUD, HTN, and obesity. Patient presents here from home with acute alcohol withdrawal. Patient reports last drink on 07/01 at 2100. Has been struggling with alcohol abuse for the past 11 years. Today pts Bp is high pt feels his cheeks are flushed and has some tremors in his hands, pt needing iv ativan this afternoon plan to DC to [place] tomorrow continue Librium tapering dosing this evening watch BP this evening Review of Systems Review of Systems: No specific complaints apart from reddish cheeks Exam Narrative: HEENT: PERRL, sclerae nonicteric, pharyngeal mucosa pink and intact NECK: No JVD, adenopathy, or thyromegaly CHEST: Clear to auscultation. Normal effort. HEART: NL S1/S2, regular, no murmur ABDOMEN: BS+, soft, nontender, no mass, no bruits EXTREMITIES: No cyanosis, edema, or clubbing NEUROLOGIC: CN intact and symmetric to inspection. MUSCULOSKELETAL: Tone and strength symmetric. PSYCH: Alert. Oriented to person, place, and time. Objective Data Vital Signs Vital Signs: Vital Signs - 24 hr 07/06/23 16:00 07/06/23 20:00 07/07/23 00:00 Temperature 36.4 C 36.2 C L 36.4 C Pulse Rate 104 H 103 H 85 Respiratory Rate 18 20 16 Blood Pressure 123/87 118/75 118/84 Pulse Oximetry 100 100 100 Oxygen Delivery 07/07/23 00:00 07/07/23 04:00 07/07/23 08:32 Temperature 36.1 C L Pulse Rate 106 H Respiratory Rate 18 Blood Pressure 118/84 138/86 147/112 H Pulse Oximetry 100 Oxygen Delivery 07/07/23 08:00 07/07/23 08:00 07/07/23 09:54 Temperature 36.2 C L Pulse Rate 97 Respiratory Rate 16 Blood Pressure 120/84 146/102 H Pulse Oximetry 100 100 Oxygen Delivery Room Air 07/07/23 12:00 Temperature 36.5 C Pulse Rate 102 H Respiratory Rate 16 Blood Pressure 142/102 H Pulse Oximetry 98 Oxygen Delivery Intake/Output Intake/Output: Intake & Output 07/04/23 07/05/23 07/06/23 07/07/23 23:59 23:59 23:59 23:59 Intake Total 2650 1720 1820 440 Output Total 1600 2 Balance 1050 1718 1820 440 Meds/Results Medications: Active Medications Generic Name Dose Route Start Last Admin Trade Name Freq PRN Reason Stop Dose Admin Acetaminophen 650 mg 07/03/23 10:06 07/05/23 21:07 Acetaminophen 325 Mg Tablet PO 650 mg Q4H PRN Administration Mild Pain (1-3) or Fever Hydrocodone Bitart/Acetaminophen 1 tab 07/03/23 10:06 Hydrocodone/Acetaminophen (*Crx) 5-325 Mg Tablet PO Q4H PRN Pain Rated 4-6 Calcium Carbonate 200 mg 07/03/23 12:50 Calcium Carbonate (Tums) 500 Mg (200 Mg Elemental) PO Q6H PRN Indigestion Chlordiazepoxide HCl 25 mg 07/06/23 13:00 07/07/23 08:30 Chlordiazepoxide (*Crx) 25 Mg Capsule PO 25 mg Q8HR RUPINDER Administration Docusate Sodium 100 mg 07/03/23 13:57 Docusate Sodium 100 Mg Capsule PO Q12H PRN Constipation Enoxaparin Sodium 40 mg 07/04/23 09:00 07/07/23 08:26
[2023-07-07] MEDS: MELATONIN 5 MG TABLET PO (20:43)
[2023-07-08 04:00] VITALS: BP 119/93; PULSE 92; RESP 16; TEMP 36.1; O2SAT 100
[2023-07-08] MEDS: chlordiazePOXIDE (*CRX) 25 MG CAPSULE PO (06:03)
[2023-07-08 07:45] LABS: Glucose Point of Care 132 mg/dl (65-105)
[2023-07-08 08:00] VITALS: BP 132/88; PULSE 94; RESP 16; TEMP 36.3; O2SAT 99
[2023-07-08] MEDS: THIAMINE HCL 100 MG TABLET PO (08:11)
[2023-07-08] MEDS: amLODIPine BESYLATE 5 MG TABLET PO (08:11)
[2023-07-08] MEDS: FOLIC ACID 1 MG TABLET PO (08:12)
[2023-07-08] MEDS: LOSARTAN POTASSIUM 25 MG TABLET 50 MG PO (08:12)
[2023-07-08] MEDS: ENOXAPARIN 40 MG/0.4 ML SYRINGE SUB-Q (08:15)
--- NOTE | 2023-07-08 11:11 | PM.DS ---
DS: Admitting Diagnosis Discharge Date 07/08/23 Admitting Diagnosis Alcohol withdrawal DS: Discharge Diagnosis Discharge Diagnosis (1) Alcohol withdrawal: Code(s): F10.939 - Alcohol use, unspecified with withdrawal, unspecified Status: Acute (2) Depression: Code(s): F32.A - Depression, unspecified Status: Acute (3) Hypertension: Qualifiers: Hypertension type: unspecified Qualified Code(s): I10 - Essential (primary) hypertension Code(s): I10 - Essential (primary) hypertension Status: Acute (4) Atypical chest pain: Code(s): R07.89 - Other chest pain Status: Acute (5) Diabetes mellitus: Code(s): E11.9 - Type 2 diabetes mellitus without complications Status: Acute DS: Summary Hospital Course Reason for hospitalization: 33yo male with alcoholism, HTN and marijuana use who presents here with acute alcohol withdrawal. Please see H&P for details. Hospital Course: Patient presents with headaches, auditory hallucinations and vision changes. Initial CIWA was 18. HR 121, RR 18 and BP 214/115 on admission. ABG 7.55/22/93 on RA. CBC normal. Serum bicarb 15 with gap of 19. Glucose 200 but not felt to have DKA. Phosphorus 1.8 and this was replaced. Repeat phos normal. ETOH 12.?LFTs were normal except for TBili 2.0 that normalized on repeat. Metabolic acidosis resolved by the next day. A1c 6.6. 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 Patient was given Valium and started on thiamine. He was admitted further care. He was started on scheduled Librium and he did well. CIWA protocol started and CIWA score trended down to 1-2. Librium was able to be weaned. He was continued on his losartan and dose was increased. Norvasc was added. Care coordination was consulted. Referrals were made for inpatient alcohol rehab. Patient was accepted at [facility]. Patient was discharged on 07/08/2023 with plans for him to go to [facility] inpatient later today. Status at Discharge Cognitive/behavioral status at discharge: stable Time Spent with Patient Time attestation: Total time spent providing and/or coordinating discharge services: 35 minutes Time spent: Greater than 30 minutes Exam Narrative: Patient slept well. Still with hallucinations with has vision wavy. Still has cravings for alcohol. AF 97.3 132/88 94 16 99% ra Gen - NARD Chest - CTA bilaterally, nml RR CV - RRR S1/S2 Abd - Soft, NT/ND, Positive BS Ext - No pedal edema Neuro - Alert and oriented. Nonfocal exam. Psych - Nml mood and affect. no shakes, tremors. Pleasant and approrpiate Skin - skin tachy mostly posterior DS: Data Data Completed and Pending Labs on day of discharge: Labs from last 24 hours 07/08/23 07:28 POC Capillary Glucose 132 H Discharge Plan Discharge Attending physician on discharge: Mo Gore Discharging Clinician: Mo Gore Anticipated Discharge Date/Time: 07/08/23 11:31 Patient Disposition: Home, Self-Care Activity: as tolerated Diet: heart healthy and diabetic Discharge Instructions: Please check yourself in at [facility] to start alcohol rehabilitation today. Check blood pressure 1 to 2 times a day. Record and bring into your doctor for review. Call your doctor if your blood pressure is greater than 180/110. Avoid NSAIDs (ibuprofen, naproxen, Aleve). Tylenol is safe to take. Follow-up with your primary care provider in 1-2 weeks. Please call for appointment. Thank you for using [facility] for your health care needs. Patient Instructions: Antibiotic Form Stand Alone Forms: General Discharge Information Follow-up/Referrals: UNKNOWN,DOCTOR [Primary Care Provider] - Call for Appointment Discharge Medications: New chlordiazepoxide HCl 25 mg Capsule 25 mg PO Q12H Qty: 7 0RF Rx Instructions: Take 25mg 2x/ day through 07/10/23 then decrease t
== END 2023-07-08 12:05 | disposition other institution (70) | DRG 775 ==
LOC: ANHED 10:11 → ANHIMU 10:34 → ANH3MEDSUR 07-04 11:15
PROVIDERS: General Practice; Internal Medicine; Student in an Organized Health Care Education/Training Program; Admitting Provider Internal Medicine; Emergency Provider Emergency Medicine; Visit Provider Internal Medicine
DX: F10.239 Alcohol dependence with withdrawal, unspecified (principal); R44.0 Auditory hallucinations; E87.3 Alkalosis; E11.9 Type 2 diabetes mellitus without complications; E66.9 Obesity, unspecified; F12.90 Cannabis use, unspecified, uncomplicated; F32.A Depression, unspecified; I10 Essential (primary) hypertension; K21.9 Gastro-esophageal reflux disease without esophagitis; R07.89 Other chest pain; Z68.32 Body mass index [BMI] 32.0-32.9, adult
CPT/HCPCS: 36415; 36600; 80048; 80053; 80307; 82375; 82805; 82948; 83036; 83050; 83735; 84100; 85025; 85610; 93005; 96361; 96372; 96374; 96375; 96376; 99285; A9270; C9113; G0378; G0379; J1650; J2060; J2405; J3360; J3411; J7030